=== PATIENT | female | born 1955 ===

== ENCOUNTER 2016-11-08 11:17 | Inpatient (IN) | payer MEDICARE ==
[2016-11-08 11:18] VITALS: BMI 23.3
[2016-11-08] MEDS ORDERED: Sodium Chloride 0.9% 1,000 ML IV ONE (12:55)
--- NOTE | 2016-11-08 12:59 | C.PDOC ---
History Of Present Illness Patient with PMHx of uterine Ca, reports 2-3 week history of weakness and bilateral leg pain. Patient also reports bright red blood per rectum over the past 2-3 days. Patient reports that she is currently on chemotherapy, last treatment was 3 weeks ago. Denies abdominal pain, SOB, fever, chest pain, back pain, numbness, weakness. Time Seen by Provider: 11/08/16 11:57 Chief Complaint (Nursing): Lower Extremity Problem/Injury Severity: Moderate Pain Scale Rating Of: 8 Recent travel outside of the [place]: No Past Medical History Reviewed: Historical Data, Nursing Documentation, Vital Signs Vital Signs: Last Vital Signs Temp 99.3 F 11/08/16 17:17 Pulse 106 H 11/08/16 17:17 Resp 20 11/08/16 17:17 BP 137/85 11/08/16 17:17 Pulse Ox 97 11/08/16 17:17 - Medical History PMH: Anxiety, Asthma, Depression, HTN, Malignancy (uterine Ca) Denies: Chronic Kidney Disease Surgical History: Tonsillectomy - [facility] Procedures CERVICAL BIOPSY NEC (07/23/14) D & C NEC (07/23/14) HYSTEROSCOPY (07/23/14) UTERINE LES DESTRUCT NEC (07/23/14) Family History: States: No Known Family Hx - Social History Hx Tobacco Use: No Hx Alcohol Use: No Hx Substance Use: No - Immunization History Hx Tetanus Toxoid Vaccination: Yes Hx Influenza Vaccination: No Hx Pneumococcal Vaccination: No Review Of Systems Except As Marked, All Systems Reviewed And Found Negative. Physical Exam - Physical Exam Appears: Non-toxic, No Acute Distress Skin: Normal Color, Warm, Pale Head: Atraumatic, Normacephalic Eye(s): bilateral: Normal Inspection, PERRL, EOMI Oral Mucosa: Moist Neck: Normal ROM Chest: Symmetrical, No Tenderness Cardiovascular: Rhythm Regular, No Friction Rub, No Murmur Respiratory: Normal Breath Sounds, No Rales, No Rhonchi, No Wheezing Gastrointestinal/Abdominal: Soft, No Tenderness Rectal: Heme Positive, No Hemorrhoids Extremity: Normal ROM, No Swelling Neurological/Psych: Oriented x3, Normal Speech, Normal Cranial Nerves, Normal Motor Gait: Steady ED Course And Treatment - Laboratory Results Result Diagrams: 11/08/16 13:40 11/08/16 13:40 O2 Sat by Pulse Oximetry: 99 (on RA) Pulse Ox Interpretation: Normal Medical Decision Making Medical Decision Making: IVF NS given. Patient was found to have hemoglobin of 7.5 and patient is having weakness with walking. Transfusion consent was performed. Disposition - Disposition Disposition: HOSPITALIZED Disposition Time: 16:00 Condition: FAIR - POA Present On Arrival: None - Clinical Impression Clinical Impression: Weakness, Anemia, GI bleeding, Hyponatremia
[2016-11-08] MEDS ORDERED: Sodium Chloride 0.9% 1,000 ML ONE (13:23)
[2016-11-08] MEDS ORDERED: Morphine 4 MG/ML VIAL ONE (13:23)
--- NOTE | 2016-11-08 13:55 | RAD ---
PROCEDURE: CHEST RADIOGRAPH, 1 VIEW HISTORY: weakness COMPARISON: 07/22/2015. FINDINGS: LUNGS: The lungs are well inflated and clear. The right MediPort terminates in the SVC. PLEURA: No pneumothorax or pleural fluid seen. CARDIOVASCULAR: Normal. OSSEOUS STRUCTURES: No significant abnormalities. VISUALIZED UPPER ABDOMEN: Normal. OTHER FINDINGS: None. IMPRESSION: No acute findings.
[2016-11-08 14:01] LABS: ALBUMIN 2.8 g/dL (3.5-5.0)
[2016-11-08 14:04] LABS: GFR AFRICAN-AMERICAN > 60; GFR NON-AFRICAN AMERICAN > 60
[2016-11-08 14:05] LABS: ALB/GLOB RATIO 0.9 (1.0-2.1); ALT/SGPT 48 U/L (9-52); AST/SGOT 58 U/L (14-36); BLOOD UREA NITROGEN 16 mg/dL (7-17); CALCIUM 7.8 mg/dl (8.6-10.4); LIPASE 17 U/L (23-300)
[2016-11-08 14:06] LABS: BASO # 0.2 K/uL (0.0-0.2); BASO % 2.3 % (0.0-2.0); EOS % 0.1 % (0.0-4.0); LYMPH # 0.9 K/uL (1.0-4.3); MEAN CORPUSCULAR HEMOGLOBIN 26.9 pg (27.0-31.0); MEAN CORPUSCULAR HGB CONC 31.3 g/dL (33.0-37.0); MEAN PLATELET VOLUME 9.3 fL (7.2-11.7); MONO # 2.7 K/uL (0.0-0.8); MONO % 24.6 % (0.0-10.0); NEUT # 7.1 K/uL (1.8-7.0); NRBC % 0.3 % (0.0-2.0); PLATELET COUNT 245 K/uL (130-400); RBC 2.81 Mil/uL (3.80-5.20); RED CELL DISTRIBUTION WIDTH 20.3 % (11.5-14.5); WHITE BLOOD COUNT 10.9 K/uL (4.8-10.8)
[2016-11-08 14:08] LABS: HEMOGLOBIN 7.5 g/dL (11.0-16.0); MEAN CELL VOLUME 85.9 fL (81.0-99.0)
[2016-11-08 14:44] LABS: SQUAMOUS EPITHIAL 1 /hpf (0-5); URINE BACTERIA RARE (<OCC); URINE BILIRUBIN NEGATIVE (NEGATIVE); URINE BLOOD NEGATIVE (NEGATIVE); URINE CLARITY Clear (Clear); URINE COLOR Yellow (YELLOW); URINE GLUCOSE (UA) NORMAL (Normal); URINE LEUKOCYTE ESTERASE NEG Leu/uL (Negative); URINE NITRATE NEGATIVE (NEGATIVE); URINE PROTEIN 1+ mg/dL (NEGATIVE); URINE UROBILINOGEN NORMAL mg/dL (0.2-1.0)
[2016-11-08 14:45] LABS: BANDS 9 % (0-2); LYMPHOCYTE 6 % (20-40); MONOCYTE 15 % (0-10); NEUTROPHIL 70 % (50-75); NUCLEATED RED BLOOD CELL 1 % (0-0); TOTAL CELLS COUNTED 100
[2016-11-08 14:46] LABS: ANISOCYTOSIS MODERATE; PLATELET ESTIMATE NORMAL (NORMAL)
[2016-11-08 14:47] LABS: HYPOCHROMIC SLIGHT; POIKILOCYTOSIS SLIGHT
[2016-11-08 14:48] LABS: OVALOCYTES SLIGHT
[2016-11-08] MEDS: Dextrose 5%/0.9% NS 1,000 ML IV SCH (18:55)
[2016-11-08 20:27] LABS: INR 1.4; PROTHROMBIN TIME 16.5 SECONDS (9.7-12.2)
--- NOTE | 2016-11-08 23:52 | CP.PCM.HP ---
History of Present Illness - History of Present Illness History of Present Illness: Patient with PMHx of uterine Ca, reports 2-3 week history of weakness and bilateral leg pain. Patient also reports bright red blood per rectum over the past 2-3 days. Patient reports that she is currently on chemotherapy, last treatment was 3 weeks ago. Denies abdominal pain, SOB, fever, chest pain, back pain, numbness, weakness. Present on Admission - Present on Admission Any Indicators Present on Admission: Yes Review of Systems - Review of Systems Systems not reviewed;Unavailable: Acuity of Condition - Constitutional Constitutional: Fatigue, Lethargy - EENT Eyes: absent: As Per HPI, Blind Spots, Blurred Vision, Change in Vision, Decreased Night Vision, Diplopia, Discharge, Dry Eye, Exophthalmos, Floaters, Irritation, Itchy Eyes, Loss of Peripheral Vision, Pain, Photophobia, Requires Corrective Lenses, Sees Flashes, Spots in Vision, Tunnel Vision, Other Visual Disturbances, Loss of Vision, Other Nose/Mouth/Throat: absent: As Per HPI, Epistaxis, Nasal Congestion, Nasal Discharge, Nasal Obstruction, Nasal Trauma, Nose Pain, Post Nasal Drip, Sinus Pain, Sinus Pressure, Bleeding Gums, Change in Voice, Dental Pain, Dry Mouth, Dysphagia, Halitosis, Hoarsness, Lip Swelling, Mouth Lesions, Mouth Pain, Odynophagia, Sore Throat, Throat Swelling, Tongue Swelling, Facial Pain, Neck Pain, Neck Mass, Other - Respiratory Respiratory: absent: As Per HPI, Cough, Dyspnea, Hemoptysis, Dyspnea on Exertion , Wheezing, Snoring, Stridor, Pain on Inspiration, Chest Congestion, Excessive Mucous Production, Change in Mucous Color, Pain with Coughing, Other - Gastrointestinal Gastrointestinal: Abdominal Pain. absent: As Per HPI, Belching, Bloating, Change in Bowel Habits, Change in Stool Character, Coffee Ground Emesis, Constipation, Cramping, Diarrhea, Dyspepsia, Dysphagia, Early Satiety, Excessive Flatus, Fecal Incontinence, Heartburn, Hematemesis, Hematochezia, Loose Stools, Melena, Nausea, Odynophagia, Temesmus, Vomiting, Other Past Patient History - Past Medical History & Family History Past Medical History?: Yes - Past Social History Smoking Status: Never Smoked - CARDIAC Hx Cardiac Disorders: Yes Hx Hypertension: Yes - PULMONARY Hx Respiratory Disorders: Yes Hx Asthma: Yes - NEUROLOGICAL Hx Neurological Disorder: No - HEENT Hx HEENT Problems: No - RENAL Hx Chronic Kidney Disease: No - ENDOCRINE/METABOLIC Hx Endocrine Disorders: No - HEMATOLOGICAL/ONCOLOGICAL Hx Cancer: Yes Hx Chemotherapy: Yes - INTEGUMENTARY Hx Dermatological Problems: No - MUSCULOSKELETAL/RHEUMATOLOGICAL Hx Musculoskeletal Disorders: No Hx Falls: No - GASTROINTESTINAL Hx Gastrointestinal Disorders: Yes Hx Gastroesophageal Reflux: Yes - GENITOURINARY/GYNECOLOGICAL Hx Genitourinary Disorders: Yes Hx Ovarian Cancer: Yes Hx Uterine Cancer: Yes - PSYCHIATRIC Hx Psychophysiologic Disorder: Yes Hx Anxiety: Yes Hx Substance Use: No - SURGICAL HISTORY Hx Surgeries: Yes Hx Tonsillectomy: Yes - ANESTHESIA Hx Anesthesia: Yes Hx Anesthesia Reactions: No Hx Malignant Hyperthermia: No Has any member of the family had a problem w/ anesthesia?: No Meds Allergies/Adverse Reactions: Allergies Allergy/AdvReac Type Severity Reaction Status Date / Time shellfish derived Allergy Verified 07/01/16 19:05 Physical Exam - Constitutional Appears: Well - Head Exam Head Exam: ATRAUMATIC, NORMAL INSPECTION, NORMOCEPHALIC - Eye Exam Eye Exam: EOMI, Normal appearance, PERRL Pupil Exam: NORMAL ACCOMODATION, PERRL - Neck Exam Neck exam: Positive for: Normal Inspection - Respiratory Exam Respiratory Exam: Clear to Auscultation Bilateral, NORMAL BREATHING PATTERN - GI/Abdominal Exam GI & Abdominal Exam: Normal Bowel Sounds, Soft. absent: Tenderness Results - Vital Signs Recent Vital Signs: Last Vital Signs Temp 98.7 F 11/08/16 22:06 Pulse 92 H 11/08/16 22:06 Resp 20 11/08/16 22:06 BP 119/70 11/08/16 22:06 Pulse Ox 98 11/08/16 17:49 - Labs Result Diagrams: 11/09/16 06:29 11/09/16 06:29 Labs: Laboratory Results - last 24 hr 11/08/16 11/08/16 16:33 20:18 PT 16.5 H INR 1.4 Blood Type O NEGATIVE Antibody Screen Negative Assessment & Plan (1) Anemia Status: Acute (2) GI bleeding Status: Acute (3) Weakness Status: Acute (4) Abdominal pain Status: Acute
[2016-11-09] MEDS: Dextrose 5%/0.9% NS 1,000 ML IV SCH ×3 (04:15→14:34)
[2016-11-09 06:35] LABS: HEMOGLOBIN 8.4 g/dL (11.0-16.0); MEAN CELL VOLUME 86.6 fL (81.0-99.0); MEAN CORPUSCULAR HEMOGLOBIN 28.3 pg (27.0-31.0); MEAN CORPUSCULAR HGB CONC 32.6 g/dL (33.0-37.0); MEAN PLATELET VOLUME 8.4 fL (7.2-11.7); RBC 2.96 Mil/uL (3.80-5.20); WHITE BLOOD COUNT 10.4 K/uL (4.8-10.8)
[2016-11-09 07:40] LABS: ALBUMIN 2.3 g/dL (3.5-5.0)
[2016-11-09 07:43] LABS: GFR AFRICAN-AMERICAN > 60; GFR NON-AFRICAN AMERICAN > 60
[2016-11-09 07:44] LABS: ALT/SGPT 36 U/L (9-52); AST/SGOT 51 U/L (14-36); BLOOD UREA NITROGEN 12 mg/dL (7-17); CALCIUM 7.5 mg/dl (8.6-10.4)
[2016-11-09 07:47] LABS: ALB/GLOB RATIO 0.9 (1.0-2.1)
[2016-11-09 08:40] LABS: INR 1.3; PROTHROMBIN TIME 14.9 SECONDS (9.7-12.2)
--- NOTE | 2016-11-09 08:49 | CP.PCM.CON ---
<Javi Diallo - Last Filed: 11/09/16 08:41> History of Present Illness - History of Present Illness History of Present Illness: PGY5 GI Fellow Consult Note Patient is a 61yo female with PMHx significant for metastatic endometrial adenocarcinoma to liver s/p total hysterectomy/BSO, right hemicolectomy and partial sigmoid resection due to tumor invasion who presented to the ED with leg pain and fatigue. The patient receives her care predominantly at [facility]. She was diagnosed with endometrial adenocarcinoma in July 2014 and underwent surgical resection followed by extensive chemotherapy until April 2016. She was noted to have recurrence of her disease with liver metastases and possible peritoneal metastases (unclear history) recently and was restarted on a new chemotherapy regimen 3 weeks prior to admission. In the days leading up to admission she suddenly developed B/L LE pain (right greater than left), generalized fatigue/malaise and 3-4 episodes of bright red blood mixed with stool. Admits that since chemotherapy she has had 3-4 loose stool per day, denies any episodes of constipation. She was seen previously for similar complaints but did not follow up with outpatient GI and has never undergone EGD/ colonoscopy. Denies any history of hemorrhoids. Currently, she admits to fatigue , decreased appetite but denies any nausea, vomiting, fever, chills, abdominal pain, melena, NSAID use. PMHx: See HPI; also, anxiety, asthma, HTN, PSBO PSHx: total hysterectomy/BSO, right hemicolectomy and partial sigmoid resection , appendectomy, tonsillectomy FHx: Father - stomach cancer, EtOH abuse; Mother - brain aneurysm Social: Denies tobacco, EtOH or illicit drug use Endo: Denies any prior endoscopic evaluation Review of Systems - Constitutional Constitutional: Anorexia. absent: Chills, Fever - EENT Eyes: absent: Change in Vision Nose/Mouth/Throat: absent: Sore Throat - Cardiovascular Cardiovascular: absent: Chest Pain, Dyspnea, Edema - Respiratory Respiratory: absent: Cough, Dyspnea, Excessive Mucous Production - Gastrointestinal Gastrointestinal: Diarrhea, Hematochezia, Loose Stools. absent: Abdominal Pain , Bloating, Constipation, Cramping, Dyspepsia, Dysphagia, Hematemesis, Melena, Nausea, Vomiting - Genitourinary Genitourinary: absent: Dysuria, Urinary Frequency, Urinary Urgency - Musculoskeletal Musculoskeletal: absent: Back Pain, Neck Pain - Integumentary Integumentary: absent: New Lesions, Rash - Neurological Neurological: absent: Dizziness, Numbness, Focal Weakness - Psychiatric Psychiatric: Anxiety. absent: Depression - Endocrine Endocrine: absent: Polydipsia, Polyphagia, Polyuria - Hematologic/Lymphatic Hematologic: absent: Easy Bleeding, Easy Bruising, Lymphadenopathy Past Patient History - Past Medical History & Family History Past Medical History?: Yes - Past Social History Smoking Status: Never Smoked - CARDIAC Hx Cardiac Disorders: Yes Hx Hypertension: Yes - PULMONARY Hx Respiratory Disorders: Yes Hx Asthma: Yes - NEUROLOGICAL Hx Neurological Disorder: No - HEENT Hx HEENT Problems: No - RENAL Hx Chronic Kidney Disease: No - ENDOCRINE/METABOLIC Hx Endocrine Disorders: No - HEMATOLOGICAL/ONCOLOGICAL Hx Cancer: Yes Hx Chemotherapy: Yes - INTEGUMENTARY Hx Dermatological Problems: No - MUSCULOSKELETAL/RHEUMATOLOGICAL Hx Musculoskeletal Disorders: No Hx Falls: No - GASTROINTESTINAL Hx Gastrointestinal Disorders: Yes Hx Gastroesophageal Reflux: Yes - GENITOURINARY/GYNECOLOGICAL Hx Genitourinary Disorders: Yes Hx Ovarian Cancer: Yes Hx Uterine Cancer: Yes - PSYCHIATRIC Hx Psychophysiologic Disorder: Yes Hx Anxiety: Yes Hx Substance Use: No - SURGICAL HISTORY Hx Surgeries: Yes Hx Tonsillectomy: Yes - ANESTHESIA Hx Anesthesia: Yes Hx Anesthesia Reactions: No Hx Malignant Hyperthermia: No Has any member of the family had a problem w/ anesthesia?: No Meds Allergies/Adverse Reactions: Allergies Allergy/AdvReac Type Severity Reaction Status Date / Time shellfish derived Allergy Verified 07/01/16 19:05 - Medications Medications: Current Medications Acetaminophen (Tylenol 325mg Tab) 650 mg PO Q6 PRN PRN Reason: Pain, moderate (4-7) Last Admin: 11/08/16 23:31 Dose: 650 mg Clonidine HCl (Catapres) 0.1 mg PO Q8 [facility] Last Admin: 11/09/16 06:02 Dose: 0.1 mg Ferric Sodium Gluconate Complex (Ferrlecit) 125 mg IVPB DAILY [facility] Stop: 11/17/16 10:01 Dextrose/Sodium Chloride (Dextrose 5%/0.9% Ns 1000 Ml) 1,000 mls @ 100 mls/hr IV .Q10H [facility] Last Admin: 11/09/16 04:15 Dose: Not Given Pantoprazole Sodium (Protonix Inj) 40 mg IVP Q12H [facility] Last Admin: 11/09/16 06:10 Dose: Not Given Physical Exam - Constitutional Appears: Non-toxic, No Acute Distress - Eye Exam Eye Exam: EOMI, PERRL - ENT Exam ENT Exam: Mucous Membranes Dry - Respiratory Exam Respiratory Exam: Clear to Auscultation Bilateral. absent: Rales, Rhonchi, Wheezes - Cardiovascular Exam Cardiovascular Exam: RRR, +S1, +S2 - GI/Abdominal Exam GI & Abdominal Exam: Normal Bowel Sounds, Soft. absent: Distended, Firm, Guarding, Rigid, Tenderness Additional comments: midline surgical scar noted - Rectal Exam Additional comments: patient refused - Extremities Exam Extremities exam: Positive for: normal inspection. Negative for: pedal edema - Neurological Exam Neurological exam: Alert, Oriented x3 - Psychiatric Exam Psychiatric exam: Normal Affect, Normal Mood - Skin Skin Exam: Dry, Warm Results - Vital Signs Recent Vital Signs: Last Vital Signs Temp 98.5 F 11/09/16 06:00 Pulse 88 11/09/16 06:00 Resp 20 11/09/16 06:00 BP 130/82 11/09/16 06:00 Pulse Ox 99 11/09/16 06:00 - Labs Result Diagrams: 11/09/16 06:29 11/09/16 06:29 Labs: Laboratory Results - last 24 hr 11/08/16 11/08/16 11/09/16 16:33 20:18 06:29 WBC 10.4 RBC 2.96 L Hgb 8.4 L Hct 25.6 L MCV 86.6 MCH 28.3 MCHC 32.6 L RDW 18.0 H Plt Count 182 MPV 8.4 PT 16.5 H INR 1.4 Sodium Potassium Chloride Carbon Dioxide Anion Gap BUN Creatinine Est GFR ( Amer) Est GFR (Non-Af Amer) Random Glucose Calcium Total Bilirubin AST ALT Alkaline Phosphatase Total Protein Albumin Globulin Albumin/Globulin Ratio Blood Type O NEGATIVE Antibody Screen Negative 11/09/16 06:29 WBC RBC Hgb Hct MCV MCH MCHC RDW Plt Count MPV PT INR Sodium 134 Potassium 3.7 Chloride 103 Carbon Dioxide 25 Anion Gap 9 L BUN 12 Creatinine 0.6 L Est GFR ( Amer) > 60 Est GFR (Non-Af Amer) > 60 Random Glucose 99 Calcium 7.5 L Total Bilirubin 1.0 AST 51 H ALT 36 Alkaline Phosphatase 620 H Total Protein 4.9 L Albumin 2.3 L Globulin 2.7 Albumin/Globulin Ratio 0.9 L Blood Type Antibody Screen Assessment & Plan - Assessment and Plan (Free Text) Assessment: Patient is a 61yo female with PMHx significant for metastatic endometrial adenocarcinoma to liver s/p total hysterectomy/BSO, right hemicolectomy and partial sigmoid resection due to tumor invasion who presented to the ED with leg pain and fatigue. -Anemia -Hemtochezia -Metastatic endometrial adenocarcinoma on chemotherapy -B/L LE pain -Diarrhea -HTN Plan: -S/P 1 unit PRBC, symptoms improved; HGB uptrending -Patient refusing rectal examination -No further episodes of overt bleeding noted by patients/staff -Anemia likely a result recent chemotherapy complicated by episodes of hematochezia -Protonix 40mg PO QAMAC -If diarrhea persists, consider Lomotil -No need for endoscopic evaluation at this time; patient currently does not wish to undergo these procedures if they were to be offered -Consider doppler imaging of LE given h/o active malignancy -OK to advance diet as tolerated - Date & Time Date: 11/09/16 Time: 07:50 <Garrett Cadena - Last Filed: 11/09/16 09:21> Meds - Medications Medications: Current Medications Acetaminophen (Tylenol 325mg Tab) 650 mg PO Q6 PRN PRN Reason: Pain, moderate (4-7) Last Admin: 11/08/16 23:31 Dose: 650 mg Clonidine HCl (Catapres) 0.1 mg PO Q8 [facility] Last Admin: 11/09/16 06:02 Dose: 0.1 mg Ferric Sodium Gluconate Complex (Ferrlecit) 125 mg IVPB DAILY [facility] Stop: 11/17/16 10:01 Dextrose/Sodium Chloride (Dextrose 5%/0.9% Ns 1000 Ml) 1,000 mls @ 100 mls/hr IV .Q10H [facility] Last Admin: 11/09/16 04:15 Dose: Not Given Pantoprazole Sodium (Protonix Ec Tab) 40 mg PO DAILY [facility] Results - Vital Signs Recent Vital Signs: Last Vital Signs Temp 98.5 F 11/09/16 06:00 Pulse 88 11/09/16 06:00 Resp 20 11/09/16 06:00 BP 130/82 11/09/16 06:00 Pulse Ox 99 11/09/16 06:00 - Labs Result Diagrams: 11/09/16 06:29 11/09/16 06:29 Labs: Laboratory Results - last 24 hr 11/08/16 11/08/16 11/09/16 16:33 20:18 06:29 WBC 10.4 RBC 2.96 L Hgb 8.4 L Hct 25.6 L MCV 86.6 MCH 28.3 MCHC 32.6 L RDW 18.0 H Plt Count 182 MPV 8.4 PT 16.5 H INR 1.4 Sodium Potassium Chloride Carbon Dioxide Anion Gap BUN Creatinine Est GFR ( Amer) Est GFR (Non-Af Amer) Random Glucose Calcium Total Bilirubin AST ALT Alkaline Phosphatase Total Protein Albumin Globulin Albumin/Globulin Ratio Blood Type O NEGATIVE Antibody Screen Negative 11/09/16 11/09/16 06:29 06:29 WBC RBC Hgb Hct MCV MCH MCHC RDW Plt Count MPV PT 14.9 H INR 1.3 Sodium 134 Potassium 3.7 Chloride 103 Carbon Dioxide 25 Anion Gap 9 L BUN 12 Creatinine 0.6 L Est GFR ( Amer) > 60 Est GFR (Non-Af Amer) > 60 Random Glucose 99 Calcium 7.5 L Total Bilirubin 1.0 AST 51 H ALT 36 Alkaline Phosphatase 620 H Total Protein 4.9 L Albumin 2.3 L Globulin 2.7 Albumin/Globulin Ratio 0.9 L Blood Type Antibody Screen Attending/Attestation - Attestation I have personally seen and examined this patient.: Yes I have fully participated in the care of the patient.: Yes I have reviewed all pertinent clinical information: Yes Notes (Text): 11/09/16 09:17 61 year old female with h/o metastatic endometrial cancer, h/o ERNESTINE/BSO, R hemicolectomy, sigmoid resection, followed at [facility], s/p new round of chemotherapy admitted with mild BRBPR. 1. BRBPR 2. Diarrhea 3. Anemia Plan: -patient had a self limited episode of BRBPR, she has responded well to transfusion -she refuses colonoscopy and this is probably not necessary emergently anyway as the bleeding resolved -her anemia and diarrhea symptoms are likely related to recent chemotherapy -if she has diarrhea in the hospital, it should be collected and sent for C. diff/Culture -recommend follow up with her oncology team at [facility] -diet as tolerated -will sign off -can use lomotil for diarrhea as needed -ok for discharge from GI standpoint unless significant further bleeding recurs -she has appointment at [facility] on tuesday
[2016-11-09] MEDS: Ferric Sodium Gluconat Complex 62.5 mg/5 ml Vial IVPB SCH (10:49)
[2016-11-09] MEDS: Pantoprazole 40 mg EC Tab PO SCH (10:49)
--- NOTE | 2016-11-09 21:51 | CP.PCM.PN ---
Subjective - Date & Time of Evaluation Date of Evaluation: 11/09/16 Time of Evaluation: 20:00 - Subjective Subjective: Pt seen & examined, is feeling much better, s/p blood transfusion. Objective - Vital Signs/Intake and Output Vital Signs (last 24 hours): Temp Pulse Resp BP Pulse Ox 97.3 F L 88 20 134/72 99 11/09/16 15:08 11/09/16 16:00 11/09/16 15:08 11/09/16 15:08 11/09/16 15:08 Intake and Output: 11/09/16 11/10/16 18:59 06:59 Intake Total 1950 Balance 1950 - Medications Medications: Current Medications Acetaminophen (Tylenol 325mg Tab) 650 mg PO Q6 PRN PRN Reason: Pain, moderate (4-7) Last Admin: 11/09/16 21:37 Dose: 650 mg Clonidine HCl (Catapres) 0.1 mg PO Q8 [facility] Last Admin: 11/09/16 21:38 Dose: 0.1 mg Ferric Sodium Gluconate Complex (Ferrlecit) 125 mg IVPB DAILY [facility] Stop: 11/17/16 10:01 Last Admin: 11/09/16 10:49 Dose: 125 mg Dextrose/Sodium Chloride (Dextrose 5%/0.9% Ns 1000 Ml) 1,000 mls @ 100 mls/hr IV .Q10H [facility] Last Admin: 11/09/16 14:34 Dose: Not Given Metoclopramide HCl (Reglan) 10 mg IVP Q6 PRN PRN Reason: Nausea/Vomiting Last Admin: 11/09/16 20:42 Dose: 10 mg Pantoprazole Sodium (Protonix Ec Tab) 40 mg PO DAILY [facility] Last Admin: 11/09/16 10:49 Dose: 40 mg Paroxetine HCl (Paxil) 10 mg PO DAILY [facility] Last Admin: 11/09/16 10:49 Dose: 10 mg - Labs Labs: 11/09/16 06:29 11/09/16 06:29 PT 14.9 SECONDS (9.7-12.2) H 11/09/16 06:29 INR 1.3 11/09/16 06:29 - Constitutional Appears: No Acute Distress - Head Exam Head Exam: ATRAUMATIC, NORMAL INSPECTION, NORMOCEPHALIC - Eye Exam Eye Exam: EOMI, Normal appearance, PERRL Pupil Exam: NORMAL ACCOMODATION, PERRL - ENT Exam ENT Exam: Mucous Membranes Moist, Normal Exam - Respiratory Exam Respiratory Exam: Clear to Ausculation Bilateral, NORMAL BREATHING PATTERN - Cardiovascular Exam Cardiovascular Exam: REGULAR RHYTHM, +S1, +S2. absent: Murmur - GI/Abdominal Exam GI & Abdominal Exam: Soft, Normal Bowel Sounds. absent: Tenderness - Rectal Exam Rectal Exam: Deferred Assessment and Plan (1) Anemia Status: Acute (2) GI bleeding Assessment & Plan: 61 year old female with h/o metastatic endometrial cancer, h/o ERNESTINE/BSO, R hemicolectomy, sigmoid resection, followed at [facility], s/p new round of chemotherapy admitted with mild BRBPR. 1. BRBPR 2. Diarrhea 3. Anemia Plan: -patient had a self limited episode of BRBPR, she has responded well to transfusion -she refuses colonoscopy and this is probably not necessary emergently anyway as the bleeding resolved -her anemia and diarrhea symptoms are likely related to recent chemotherapy -if she has diarrhea in the hospital, it should be collected and sent for C. diff/Culture -recommend follow up with her oncology team at [facility] -diet as tolerated -will sign off -can use lomotil for diarrhea as needed -ok for discharge from GI standpoint unless significant further bleeding recurs -she has appointment at [facility] on tuesday Status: Acute (3) Gastrointestinal hemorrhage Status: Acute (4) Uterine cancer Status: Acute
[2016-11-10] MEDS: Dextrose 5%/0.9% NS 1,000 ML IV SCH (00:15)
[2016-11-10] MEDS: Ferric Sodium Gluconat Complex 62.5 mg/5 ml Vial IVPB SCH (10:04)
[2016-11-10] MEDS: Pantoprazole 40 mg EC Tab PO SCH (10:05)
--- NOTE | 2016-11-10 10:25 | US ---
HISTORY: high lft's COMPARISON: CT abdomen/ pelvis 07/22/2015 TECHNIQUE: Sonographic evaluation of the abdomen. FINDINGS: LIVER: Measures 17.1 cm. Heterogeneous echogenicity of the liver parenchyma. Multiple hypoechoic masses are identified, largest 6.6 x 5.0 x 4.4 cm. Suspicious for metastatic disease. No biliary ductal dilatation. GALLBLADDER: Gallbladder partially contracted. Mural thickening up to 9 mm. Nonspecific. Cholelithiasis noted. Pericholecystic fluid is seen in the setting of mild generalized ascites. Again, nonspecific. Negative sonographic Mcgee sign. COMMON BILE DUCT: Measures 4 mm. No stones. No dilatation. PANCREAS: In the region of the pancreatic head, there is a complex mass, predominantly cystic, measuring 2.9 x 1.3 x 2.0 cm. This may represent the ileocolic anastomosis status post partial right hemicolectomy. Less likely is pancreatic head neoplasm. Consider correlation with CT examination with IV contrast administration. RIGHT KIDNEY: Measures 11.0cm. Normal echogenicity. No calculus, mass, or hydronephrosis. LEFT KIDNEY: Measures 11.1cm. Normal echogenicity. No calculus, mass, or hydronephrosis. SPLEEN: Normal in size and contour. No mass. AORTA: No aneurysmal dilatation. IVC: Unremarkable. OTHER FINDINGS: Ascites. Bilateral pleural effusion. IMPRESSION: Multiple hepatic masses suspicious for metastatic disease. No evidence of biliary obstruction. Cholelithiasis. No clear evidence of cholecystitis. Complex cystic mass versus ileocolic anastomosis in region of pancreatic head. Consider correlation with intravenous contrast enhanced computed tomography. Ascites. Bilateral pleural effusion.
[2016-11-10 10:53] LABS: BASO % 0.4 % (0.0-2.0); EOS % 0.1 % (0.0-4.0); HEMOGLOBIN 8.1 g/dL (11.0-16.0); LYMPH # 0.7 K/uL (1.0-4.3); LYMPH % 5.7 % (20.0-40.0); MEAN CELL VOLUME 87.4 fL (81.0-99.0); MEAN CORPUSCULAR HEMOGLOBIN 27.8 pg (27.0-31.0); MEAN CORPUSCULAR HGB CONC 31.8 g/dL (33.0-37.0); MEAN PLATELET VOLUME 8.4 fL (7.2-11.7); MONO # 1.8 K/uL (0.0-0.8); MONO % 15.7 % (0.0-10.0); NEUT # 9.1 K/uL (1.8-7.0); NEUT % 78.1 % (50.0-75.0); NRBC % 0.2 % (0.0-2.0); RBC 2.92 Mil/uL (3.80-5.20); RED CELL DISTRIBUTION WIDTH 18.8 % (11.5-14.5); WHITE BLOOD COUNT 11.6 K/uL (4.8-10.8)
[2016-11-10 11:01] LABS: PLATELET COUNT 120 K/uL (130-400)
[2016-11-10 11:39] LABS: ANISOCYTOSIS SLIGHT; BANDS 9 % (0-2); HYPOCHROMIC SLIGHT; LYMPHOCYTE 5 % (20-40); MONOCYTE 10 % (0-10); NEUTROPHIL 76 % (50-75); PLATELET ESTIMATE SLIGHTLY DECREASED (NORMAL); TOTAL CELLS COUNTED 100
[2016-11-10 11:40] LABS: POIKILOCYTOSIS SLIGHT
[2016-11-10 11:41] LABS: POLYCHROMIC SLIGHT
--- NOTE | 2016-11-10 17:20 | CP.PCM.PN ---
Subjective - Date & Time of Evaluation Date of Evaluation: 11/10/16 Time of Evaluation: 10:45 - Subjective Subjective: HOME ECONOMIST NOTES Pt seen and examined today , states feels ok, denies further rectal bleeding, denies any sob, dizziness, palpitations, abdominal pain B/L LE swollen and c/o left calf pain , duplex scan LE ordered - and positive DVT B/L -( saphenous vein, popliteal vein ) Objective - Vital Signs/Intake and Output Vital Signs (last 24 hours): Temp Pulse Resp BP Pulse Ox 98.0 F 55 L 20 148/82 98 11/10/16 15:27 11/10/16 15:27 11/10/16 15:27 11/10/16 15:27 11/10/16 15:27 Intake and Output: 11/10/16 11/10/16 06:59 18:59 Intake Total 330 Balance 330 - Medications Medications: Current Medications Acetaminophen (Tylenol 325mg Tab) 650 mg PO Q6 PRN PRN Reason: Pain, moderate (4-7) Last Admin: 11/10/16 14:51 Dose: 650 mg Clonidine HCl (Catapres) 0.1 mg PO Q8 [facility] Last Admin: 11/10/16 14:02 Dose: 0.1 mg Enoxaparin Sodium (Lovenox) 49.895 mg SC Q12H [facility] Ferric Sodium Gluconate Complex (Ferrlecit) 125 mg IVPB DAILY [facility] Stop: 11/17/16 10:01 Last Admin: 11/10/16 10:04 Dose: 125 mg Metoclopramide HCl (Reglan) 10 mg IVP Q6 PRN PRN Reason: Nausea/Vomiting Last Admin: 11/10/16 05:23 Dose: 10 mg Pantoprazole Sodium (Protonix Ec Tab) 40 mg PO DAILY [facility] Last Admin: 11/10/16 10:05 Dose: 40 mg Paroxetine HCl (Paxil) 10 mg PO DAILY [facility] Last Admin: 11/10/16 10:06 Dose: 10 mg - Labs Labs: 11/10/16 10:43 11/09/16 06:29 PT 14.9 SECONDS (9.7-12.2) H 11/09/16 06:29 INR 1.3 11/09/16 06:29 - Constitutional Appears: No Acute Distress - ENT Exam ENT Exam: Mucous Membranes Moist - Respiratory Exam Respiratory Exam: Clear to Ausculation Bilateral, NORMAL BREATHING PATTERN - Cardiovascular Exam Cardiovascular Exam: REGULAR RHYTHM, +S1, +S2 - Extremities Exam Extremities Exam: Calf Tenderness, Full ROM, Pedal Edema, Tenderness Assessment and Plan - Assessment and Plan (Free Text) Assessment: A/P 61 yr old female admitted for rectal bleed, anemia s/p PRBC transfusion- hgb- improved and stable - 8.1> 8.4>7.5 OB + seen by GI pt refused GI workup (colonoscopy and EGD) new dx with DVT B/L le D/w Dr. Mohsen edmondson to start lovenox ( risk vs benefit ) Dr. Owusu consulted for possible IVC filter Lovenox wt based started will monitor cbc daily/ and further bleeding the above plan discussed with Dr. Quan, and agrees with plan
[2016-11-10] MEDS: Enoxaparin 60 mg Syringe SC SCH (17:58)
--- NOTE | 2016-11-10 18:43 | CP.PCM.CON ---
History of Present Illness - History of Present Illness History of Present Illness: General Surgery consult for Dr. Vargas Patient is a 61 year old female with a PMH of metastatic uterine cancer, HTN, GERD, and asthma and a PSH including hysterectomy with BSO and right hemicolectomy with partial sigmoidectomy who is currently undergoing chemotherapy treatment. Patient presented to the ER for BL lower extremity pain. Patient state that the pain began 3-4 days ago and is in her calves when she walks. Patient also reports history of diarrhea and nausea due to the chemotherapy treatment and had one episode of hematochezia two days ago. Patient states that she has not had any other bleeding or melena since. Patient denies any SOB, chest pain, vomiting, abdominal pain, or any other symptoms. Patient was severely anemic on presentation and remains anemic despite a transfusion of 1 unit of PRBC. GI is consulted but patient is currently refusing endoscopic evaluation. PMH: HTN, ansiety, asthma, GERD, metastatic uterine cancer PSH: hysterectomy wtih BSO, right hemicolectomy and partial sigmoid resection, tonsillectomy All: shellfish Social: denies tobacco, drinks socially, denies drugs Review of Systems - Review of Systems All systems: reviewed and no additional remarkable complaints except (as per HPI ) - Constitutional Constitutional: Weight Loss. absent: Chills, Fever Additional comments: decreased PO intake - Cardiovascular Cardiovascular: Palpitations. absent: Chest Pain, Chest Pain at Rest, Dyspnea - Respiratory Respiratory: absent: Cough, Dyspnea, Dyspnea on Exertion, Chest Congestion - Gastrointestinal Gastrointestinal: Hematochezia. absent: Abdominal Pain, Diarrhea, Melena, Nausea, Vomiting - Genitourinary Genitourinary: absent: Change in Urinary Stream, Dysuria, Hematuria - Reproductive: Female Reproductive:Female: S/P Hysterectomy - Menstruation Menstruation: S/P Hysterectomy - Musculoskeletal Musculoskeletal: absent: Numbness, Tingling Additional comments: BL LE pain - Neurological Neurological: absent: Abnormal Gait, Numbness, Tingling - Psychiatric Psychiatric: Anxiety - Endocrine Endocrine: Palpitations. absent: Fatigue Past Patient History - Past Medical History & Family History Past Medical History?: Yes - Past Social History Smoking Status: Never Smoked Alcohol: Social Drugs: Denies - CARDIAC Hx Cardiac Disorders: Yes Hx Hypertension: Yes - PULMONARY Hx Respiratory Disorders: Yes Hx Asthma: Yes - NEUROLOGICAL Hx Neurological Disorder: No - HEENT Hx HEENT Problems: No - RENAL Hx Chronic Kidney Disease: No - ENDOCRINE/METABOLIC Hx Endocrine Disorders: No - HEMATOLOGICAL/ONCOLOGICAL Hx Cancer: Yes Hx Chemotherapy: Yes - INTEGUMENTARY Hx Dermatological Problems: No - MUSCULOSKELETAL/RHEUMATOLOGICAL Hx Musculoskeletal Disorders: No Hx Falls: No - GASTROINTESTINAL Hx Gastrointestinal Disorders: Yes Hx Gastroesophageal Reflux: Yes - GENITOURINARY/GYNECOLOGICAL Hx Genitourinary Disorders: Yes Hx Ovarian Cancer: Yes Hx Uterine Cancer: Yes - PSYCHIATRIC Hx Psychophysiologic Disorder: Yes Hx Anxiety: Yes Hx Substance Use: No - SURGICAL HISTORY Hx Surgeries: Yes Hx Tonsillectomy: Yes - ANESTHESIA Hx Anesthesia: Yes Hx Anesthesia Reactions: No Hx Malignant Hyperthermia: No Has any member of the family had a problem w/ anesthesia?: No Meds Allergies/Adverse Reactions: Allergies Allergy/AdvReac Type Severity Reaction Status Date / Time shellfish derived Allergy Verified 07/01/16 19:05 - Medications Medications: Current Medications Acetaminophen (Tylenol 325mg Tab) 650 mg PO Q6 PRN PRN Reason: Pain, moderate (4-7) Last Admin: 11/10/16 14:51 Dose: 650 mg Clonidine HCl (Catapres) 0.1 mg PO Q8 [facility] Last Admin: 11/10/16 14:02 Dose: 0.1 mg Enoxaparin Sodium (Lovenox) 49.895 mg SC Q12H [facility] Last Admin: 11/10/16 17:58 Dose: 49.895 mg Ferric Sodium Gluconate Complex (Ferrlecit) 125 mg IVPB DAILY [facility] Stop: 11/17/16 10:01 Last Admin: 11/10/16 10:04 Dose: 125 mg Metoclopramide HCl (Reglan) 10 mg IVP Q6 PRN PRN Reason: Nausea/Vomiting Last Admin: 11/10/16 05:23 Dose: 10 mg Pantoprazole Sodium (Protonix Ec Tab) 40 mg PO DAILY [facility] Last Admin: 11/10/16 10:05 Dose: 40 mg Paroxetine HCl (Paxil) 10 mg PO DAILY [facility] Last Admin: 11/10/16 10:06 Dose: 10 mg Physical Exam - Constitutional Appears: Well, Non-toxic, No Acute Distress - Head Exam Head Exam: ATRAUMATIC, NORMOCEPHALIC - Eye Exam Eye Exam: Normal appearance. absent: Conjunctival injection, Scleral icterus - ENT Exam ENT Exam: Mucous Membranes Moist, Normal Oropharynx - Respiratory Exam Respiratory Exam: NORMAL BREATHING PATTERN. absent: Accessory Muscle Use, Respiratory Distress - Cardiovascular Exam Cardiovascular Exam: Irregular Rhythm. absent: Bradycardia, Tachycardia - GI/Abdominal Exam GI & Abdominal Exam: Soft. absent: Distended, Tenderness - Extremities Exam Extremities exam: Negative for: calf tenderness, pedal edema, pedal pulses present Additional comments: negative holmans BL - Neurological Exam Neurological exam: Alert, Oriented x3 - Psychiatric Exam Psychiatric exam: Normal Affect, Normal Mood - Skin Skin Exam: Dry, Intact, Normal Color, Warm Results - Vital Signs Recent Vital Signs: Last Vital Signs Temp 98.0 F 11/10/16 15:27 Pulse 55 L 11/10/16 15:27 Resp 20 11/10/16 15:27 BP 148/82 11/10/16 15:27 Pulse Ox 98 11/10/16 15:27 - Labs Result Diagrams: 11/10/16 10:43 11/09/16 06:29 Labs: Laboratory Results - last 24 hr 11/10/16 10:43 WBC 11.6 H RBC 2.92 L Hgb 8.1 L Hct 25.5 L MCV 87.4 MCH 27.8 MCHC 31.8 L RDW 18.8 H Plt Count 120 L D MPV 8.4 Neut % (Auto) 78.1 H Lymph % (Auto) 5.7 L [place] % (Auto) 15.7 H Eos % (Auto) 0.1 Baso % (Auto) 0.4 Neut # 9.1 H Lymph # 0.7 L [place] # 1.8 H Eos # 0.0 Baso # 0.0 Neutrophils % (Manual) 76 H Band Neutrophils % 9 H Lymphocytes % (Manual) 5 L Monocytes % (Manual) 10 Platelet Estimate Slightly decreased L Polychromasia Slight Hypochromasia (manual) Slight Poikilocytosis (manual Slight Anisocytosis (manual) Slight Assessment & Plan - Assessment and Plan (Free Text) Assessment: 61F with PMH of uterine cancer with mets to liver and colon currently undergoing chemo with BL LE DVT's, anemia, and hematochezia BL LE duplex US: multiple DVT's BL hgb: 8.1 anti-coagulants contra-indicated with anemia and possibility of GI bleed Plan: -OR tomorrow for IVC placement -NPO after midnight -AM labs -continue lovenox Thank you for this consult Discussed with Dr. Sam Poe, PGY2
--- NOTE | 2016-11-10 22:47 | CP.PCM.PN ---
Subjective - Date & Time of Evaluation Date of Evaluation: 11/10/16 Time of Evaluation: 21:00 - Subjective Subjective: 61F seen and examined today, with PMH of uterine cancer with mets to liver and colon currently undergoing chemo with BL LE DVT's, anemia, and hematochezia BL LE duplex US: multiple DVT's BL hgb: 8.1 anti-coagulants contra-indicated with anemia and possibility of GI bleed Objective - Vital Signs/Intake and Output Vital Signs (last 24 hours): Temp Pulse Resp BP Pulse Ox 98.0 F 55 L 20 148/82 98 11/10/16 15:27 11/10/16 15:27 11/10/16 15:27 11/10/16 15:27 11/10/16 15:27 Intake and Output: 11/10/16 11/11/16 18:59 06:59 Intake Total 330 Balance 330 - Medications Medications: Current Medications Acetaminophen (Tylenol 325mg Tab) 650 mg PO Q6 PRN PRN Reason: Pain, moderate (4-7) Last Admin: 11/10/16 14:51 Dose: 650 mg Clonidine HCl (Catapres) 0.1 mg PO Q8 [facility] Last Admin: 11/10/16 21:26 Dose: 0.1 mg Enoxaparin Sodium (Lovenox) 49.895 mg SC Q12H [facility] Last Admin: 11/10/16 17:58 Dose: 49.895 mg Ferric Sodium Gluconate Complex (Ferrlecit) 125 mg IVPB DAILY [facility] Stop: 11/17/16 10:01 Last Admin: 11/10/16 10:04 Dose: 125 mg Metoclopramide HCl (Reglan) 10 mg IVP Q6 PRN PRN Reason: Nausea/Vomiting Last Admin: 11/10/16 05:23 Dose: 10 mg Pantoprazole Sodium (Protonix Ec Tab) 40 mg PO DAILY [facility] Last Admin: 11/10/16 10:05 Dose: 40 mg Paroxetine HCl (Paxil) 10 mg PO DAILY [facility] Last Admin: 11/10/16 10:06 Dose: 10 mg Zolpidem Tartrate (Ambien) 5 mg PO HS PRN PRN Reason: Insomnia Last Admin: 11/10/16 22:37 Dose: 5 mg - Labs Labs: 11/10/16 10:43 11/09/16 06:29 PT 14.9 SECONDS (9.7-12.2) H 11/09/16 06:29 INR 1.3 11/09/16 06:29 - Constitutional Appears: No Acute Distress, Chronically Ill - Head Exam Head Exam: ATRAUMATIC, NORMAL INSPECTION, NORMOCEPHALIC - Eye Exam Eye Exam: EOMI, Normal appearance, PERRL Pupil Exam: NORMAL ACCOMODATION, PERRL - ENT Exam ENT Exam: Mucous Membranes Moist, Normal Exam - Respiratory Exam Respiratory Exam: Decreased Breath Sounds, Rhonchi - Cardiovascular Exam Cardiovascular Exam: Irregular Rhythm, +S1, +S2 - GI/Abdominal Exam GI & Abdominal Exam: Soft, Normal Bowel Sounds. absent: Tenderness Assessment and Plan (1) Anemia Status: Acute (2) GI bleeding Status: Acute (3) Gastrointestinal hemorrhage Status: Acute (4) Uterine cancer Status: Acute - Assessment and Plan (Free Text) Plan: Plan: -OR tomorrow for IVC placement -NPO after midnight -AM labs -continue lovenox
[2016-11-11] MEDS: Enoxaparin 60 mg Syringe SC SCH ×2 (05:17→16:32)
[2016-11-11 06:33] LABS: INR 1.5; PROTHROMBIN TIME 16.5 SECONDS (9.7-12.2)
[2016-11-11 06:36] LABS: BASO % 0.3 % (0.0-2.0); EOS % 0.1 % (0.0-4.0); HEMOGLOBIN 8.2 g/dL (11.0-16.0); MEAN CELL VOLUME 87.3 fL (81.0-99.0); MEAN CORPUSCULAR HEMOGLOBIN 28.1 pg (27.0-31.0); MEAN CORPUSCULAR HGB CONC 32.1 g/dL (33.0-37.0); MEAN PLATELET VOLUME 9.2 fL (7.2-11.7); MONO # 2.7 K/uL (0.0-0.8); MONO % 19.2 % (0.0-10.0); NEUT # 10.3 K/uL (1.8-7.0); NEUT % 73.4 % (50.0-75.0); NRBC % 0.1 % (0.0-2.0); PLATELET COUNT 141 K/uL (130-400); RBC 2.91 Mil/uL (3.80-5.20); RED CELL DISTRIBUTION WIDTH 20.3 % (11.5-14.5)
[2016-11-11 07:19] LABS: ALBUMIN 2.3 g/dL (3.5-5.0)
[2016-11-11 07:21] LABS: AST/SGOT 69 U/L (14-36); GFR AFRICAN-AMERICAN > 60; GFR NON-AFRICAN AMERICAN > 60
[2016-11-11 07:22] LABS: ALB/GLOB RATIO 0.8 (1.0-2.1); ALT/SGPT 37 U/L (9-52); BLOOD UREA NITROGEN 12 mg/dL (7-17); CALCIUM 7.9 mg/dl (8.6-10.4)
[2016-11-11 08:28] LABS: BANDS 2 % (0-2); LYMPHOCYTE 7 % (20-40); MONOCYTE 19 % (0-10); NEUTROPHIL 72 % (50-75); TOTAL CELLS COUNTED 100
[2016-11-11 08:29] LABS: PLATELET ESTIMATE NORMAL (NORMAL)
[2016-11-11 08:30] LABS: ANISOCYTOSIS MODERATE; HYPOCHROMIC SLIGHT; POLYCHROMIC SLIGHT
[2016-11-11 08:31] LABS: MICROCYTOSIS SLIGHT
[2016-11-11 08:32] LABS: OVALOCYTES SLIGHT
[2016-11-11] MEDS: Pantoprazole 40 mg EC Tab PO SCH ×2 (10:00→21:46)
[2016-11-11] MEDS ORDERED: Iodixanol 320 MG/ML 200 ML BOTTLE IV ONE (10:07)
[2016-11-11] MEDS ORDERED: Lidocaine 1% Inj (20ml) ONE (10:08)
[2016-11-11] MEDS ORDERED: ceFAZolin IV 1 gm in Dextrose 0 GM/0 ML BAG IVPB ONE (10:08)
[2016-11-11] MEDS ORDERED: HEPARIN-NS 5,000 UNITS/500 ML 5,000 UNIT/500 ML BAG IV ONE (10:11)
[2016-11-11] MEDS ORDERED: Lactated Ringer's 1,000 ML IV ONE (10:24)
[2016-11-11] MEDS: Ferric Sodium Gluconat Complex 62.5 mg/5 ml Vial IVPB SCH ×2 (10:25→12:39)
--- NOTE | 2016-11-11 13:30 | VASCLAB ---
PROCEDURE: Lower Extremity Venous Duplex Exam. HISTORY: Leg swelling PRIORS: None. TECHNIQUE: Bilateral common femoral, femoral, popliteal and posterior tibial, peroneal and great saphenous veins were evaluated. Flow was assessed with color Doppler, compressibility, assessment of phasic flow and augmentation response. Report prepared by TRINO Palmer, RVT FINDINGS: RIGHT: 1. Common Femoral Vein: 1.1. Compressibility - Partial: Thrombus - Acute : Flow - Phasic: Augmentation -Normal: Reflux - None. 2. Femoral Vein: 2.1. Compressibility - Fully compressible: Thrombus - None : Flow - Phasic: Augmentation -Normal: Reflux - None. 3. Popliteal Vein: 3.1. Compressibility - Partial: Thrombus - Acute : Flow - Reduced : Augmentation -None: Reflux - None. 4. Posterior Tibial Vein: 4.1. Compressibility - Fully compressible: Thrombus - None: Flow - Phasic: Augmentation -Normal: Reflux - None. 5. Peroneal Vein: 5.1. Compressibility - Fully compressible: Thrombus - None: Flow - Phasic: Augmentation -Normal: Reflux - None. 6. Great Saphenous Vein: 6.1. Compressibility - Incompressible: Thrombus - Acute: Flow - Absent : Augmentation - None: Reflux - None. LEFT: 1. Common Femoral Vein: 1.1. Compressibility - Fully compressible: Thrombus - None: Flow - Phasic: Augmentation -Normal: Reflux - None. 2. Femoral Vein: 2.1. Compressibility - Fully compressible: Thrombus - None: Flow - Phasic: Augmentation -Normal: Reflux - None. 3. Popliteal Vein: 3.1. Compressibility - Fully compressible: Thrombus - None : Flow - Phasic: Augmentation -Normal: Reflux - None. 4. Posterior Tibial Vein: 4.1. Compressibility - Fully compressible: Thrombus - None: Flow - Phasic: Augmentation -Normal: Reflux - None. 5. Peroneal Vein: 5.1. Compressibility - Partial: Thrombus - Acute: Flow - Absent : Augmentation -None: Reflux - None. 6. Great Saphenous Vein: 6.1. Compressibility - Incompressible: Thrombus - Acute: Flow - Absent : Augmentation - None: Reflux - None. OTHER FINDINGS: VICTORIA Swanson notified about the findings. IMPRESSION: Right: Acute thrombosis of the right common femoral, femoral, popliteal and greater saphenous veins with severe reduction of the venous return. Left: Acute thrombosis of the left peroneal and greater saphenous veins with severe reduction of the venous return.
--- NOTE | 2016-11-11 14:48 | CP.PCM.PN ---
Subjective - Date & Time of Evaluation Date of Evaluation: 11/11/16 Time of Evaluation: 11:00 - Subjective Subjective: Pt with Gi bleed and advanced uterus cancer, pt is on medical and supportive managment, no intervention /procedure is recomended, on chemo, pt has DVT on b/ l LE, IVC filter has to be placed Objective - Vital Signs/Intake and Output Vital Signs (last 24 hours): Temp Pulse Resp BP Pulse Ox 98.6 F 91 H 20 144/80 97 11/11/16 12:42 11/11/16 14:14 11/11/16 12:42 11/11/16 14:14 11/11/16 12:42 - Medications Medications: Current Medications Acetaminophen (Tylenol 325mg Tab) 650 mg PO Q6 PRN PRN Reason: Pain, moderate (4-7) Last Admin: 11/10/16 14:51 Dose: 650 mg Clonidine HCl (Catapres) 0.1 mg PO Q8 [facility] Last Admin: 11/11/16 14:15 Dose: 0.1 mg Enoxaparin Sodium (Lovenox) 49.895 mg SC Q12H [facility] Last Admin: 11/11/16 05:17 Dose: 49.895 mg Ferric Sodium Gluconate Complex (Ferrlecit) 125 mg IVPB DAILY [facility] Stop: 11/17/16 10:01 Last Admin: 11/11/16 12:39 Dose: 125 mg Metoclopramide HCl (Reglan) 10 mg IVP Q6 PRN PRN Reason: Nausea/Vomiting Last Admin: 11/10/16 05:23 Dose: 10 mg Pantoprazole Sodium (Protonix Ec Tab) 40 mg PO DAILY [facility] Last Admin: 11/11/16 10:00 Dose: Not Given Paroxetine HCl (Paxil) 10 mg PO DAILY [facility] Last Admin: 11/11/16 10:00 Dose: Not Given Zolpidem Tartrate (Ambien) 5 mg PO HS PRN PRN Reason: Insomnia Last Admin: 11/10/16 22:37 Dose: 5 mg - Labs Labs: 11/11/16 06:14 11/11/16 04:00 PT 16.5 SECONDS (9.7-12.2) H 11/11/16 06:14 INR 1.5 11/11/16 06:14 APTT 32 SECONDS (21-34) 11/11/16 06:14 Assessment and Plan (1) Anemia Status: Acute (2) GI bleeding Status: Acute (3) Gastrointestinal hemorrhage Status: Acute (4) Uterine cancer Status: Acute
[2016-11-12] MEDS: Enoxaparin 60 mg Syringe SC SCH ×2 (05:25→17:19)
[2016-11-12 07:27] LABS: BASO % 0.2 % (0.0-2.0); HEMOGLOBIN 8.3 g/dL (11.0-16.0); LYMPH # 0.5 K/uL (1.0-4.3); LYMPH % 3.6 % (20.0-40.0); MEAN CELL VOLUME 87.9 fL (81.0-99.0); MEAN CORPUSCULAR HEMOGLOBIN 27.7 pg (27.0-31.0); MEAN CORPUSCULAR HGB CONC 31.6 g/dL (33.0-37.0); MONO # 0.7 K/uL (0.0-0.8); MONO % 5.1 % (0.0-10.0); NEUT # 12.7 K/uL (1.8-7.0); NEUT % 91.1 % (50.0-75.0); PLATELET COUNT 149 K/uL (130-400); RED CELL DISTRIBUTION WIDTH 20.5 % (11.5-14.5); WHITE BLOOD COUNT 13.9 K/uL (4.8-10.8)
[2016-11-12 07:54] LABS: GFR AFRICAN-AMERICAN > 60; GFR NON-AFRICAN AMERICAN > 60
[2016-11-12 07:55] LABS: BLOOD UREA NITROGEN 13 mg/dL (7-17); CALCIUM 7.8 mg/dl (8.6-10.4)
[2016-11-12 08:39] LABS: ANISOCYTOSIS SLIGHT; BANDS 2 % (0-2); LYMPHOCYTE 3 % (20-40); MONOCYTE 2 % (0-10); NEUTROPHIL 93 % (50-75); PLATELET ESTIMATE NORMAL (NORMAL); TOTAL CELLS COUNTED 100
[2016-11-12 08:40] LABS: HYPOCHROMIC SLIGHT; MICROCYTOSIS SLIGHT; POLYCHROMIC SLIGHT
[2016-11-12] MEDS: Ferric Sodium Gluconat Complex 62.5 mg/5 ml Vial IVPB SCH (10:10)
[2016-11-12] MEDS: Pantoprazole 40 mg EC Tab PO SCH (10:10)
[2016-11-12] MEDS ORDERED: Iohexol 240 (50 ml) ONE (11:42)
[2016-11-12] MEDS ORDERED: DiphenhydrAMINE 50 mg/ml Inj IVP STA (11:44)
[2016-11-12] MEDS ORDERED: HEPARIN-NS 5,000 UNITS/500 ML 5,000 UNIT/500 ML BAG IV ONE (11:53)
[2016-11-12] MEDS ORDERED: Sodium Chloride 0.9% 1,000 ML IV ONE (12:30)
[2016-11-12] MEDS ORDERED: Midazolam 2 MG/2 ML VIAL ONE (12:38)
[2016-11-12] MEDS ORDERED: ceFAZolin IV 1 gm in Dextrose 1 GM/50 ML BAG IVPB ONE (13:04)
[2016-11-12] MEDS ORDERED: Oxycodone/Acetaminophen 5/325 mg Tab PO PRN (13:27)
[2016-11-12 16:37] VITALS: RESP 20
[2016-11-12] MEDS: DiphenhydrAMINE 50 mg/ml Inj IVP SCH (17:19)
[2016-11-13] MEDS: DiphenhydrAMINE 50 mg/ml Inj IVP SCH (00:20)
[2016-11-13] MEDS: Sodium Chloride 0.9% 1,000 ML IV SCH ×2 (00:21→03:04)
[2016-11-13] MEDS: Enoxaparin 60 mg Syringe SC SCH ×2 (05:29→17:20)
[2016-11-13 06:48] LABS: BASO % 0.1 % (0.0-2.0); HEMOGLOBIN 8.3 g/dL (11.0-16.0); LYMPH # 0.8 K/uL (1.0-4.3); LYMPH % 3.6 % (20.0-40.0); MEAN CELL VOLUME 88.2 fL (81.0-99.0); MEAN CORPUSCULAR HEMOGLOBIN 28.3 pg (27.0-31.0); MEAN CORPUSCULAR HGB CONC 32.1 g/dL (33.0-37.0); MEAN PLATELET VOLUME 9.1 fL (7.2-11.7); MONO # 2.2 K/uL (0.0-0.8); MONO % 9.7 % (0.0-10.0); NEUT # 19.5 K/uL (1.8-7.0); NEUT % 86.6 % (50.0-75.0); PLATELET COUNT 167 K/uL (130-400); RBC 2.93 Mil/uL (3.80-5.20); RED CELL DISTRIBUTION WIDTH 21.4 % (11.5-14.5); WHITE BLOOD COUNT 22.5 K/uL (4.8-10.8)
[2016-11-13 07:02] LABS: ALBUMIN 2.5 g/dL (3.5-5.0)
[2016-11-13 07:05] LABS: ALB/GLOB RATIO 0.9 (1.0-2.1); AST/SGOT 51 U/L (14-36); BLOOD UREA NITROGEN 15 mg/dL (7-17); GFR AFRICAN-AMERICAN > 60; GFR NON-AFRICAN AMERICAN > 60
[2016-11-13 07:06] LABS: ALT/SGPT 33 U/L (9-52); CALCIUM 7.9 mg/dl (8.6-10.4)
--- NOTE | 2016-11-13 07:30 | CP.PCM.PN ---
Subjective - Date & Time of Evaluation Date of Evaluation: 11/12/16 Time of Evaluation: 20:40 - Subjective Subjective: Pt seen and examined, is improving Objective - Vital Signs/Intake and Output Vital Signs (last 24 hours): Temp Pulse Resp BP Pulse Ox 97.5 F L 78 20 123/74 99 11/13/16 05:25 11/13/16 05:25 11/13/16 05:25 11/13/16 05:25 11/13/16 05:25 Intake and Output: 11/13/16 11/13/16 06:59 18:59 Intake Total 240 Balance 240 - Medications Medications: Current Medications Acetaminophen (Tylenol 325mg Tab) 650 mg PO Q6 PRN PRN Reason: Pain, Mild (1-3) Clonidine HCl (Catapres) 0.1 mg PO Q8 [facility] Last Admin: 11/13/16 05:29 Dose: 0.1 mg Enoxaparin Sodium (Lovenox) 49.895 mg SC Q12H [facility] Last Admin: 11/13/16 05:29 Dose: 49.895 mg Ferric Sodium Gluconate Complex (Ferrlecit) 125 mg IVPB DAILY [facility] Stop: 11/17/16 10:01 Last Admin: 11/12/16 10:10 Dose: 125 mg Sodium Chloride (Sodium Chloride 0.9%) 1,000 mls @ 75 mls/hr IV .[id number] [facility] Last Admin: 11/13/16 03:04 Dose: Not Given Metoclopramide HCl (Reglan) 10 mg IVP Q6 PRN PRN Reason: Nausea/Vomiting Last Admin: 11/12/16 10:09 Dose: 10 mg Oxycodone/Acetaminophen (Percocet 5/325 Mg Tab) 1 tab PO Q6H PRN PRN Reason: Pain, moderate (4-7) Stop: 11/15/16 13:28 Pantoprazole Sodium (Protonix Ec Tab) 40 mg PO DAILY [facility] Last Admin: 11/12/16 10:10 Dose: 40 mg Paroxetine HCl (Paxil) 10 mg PO DAILY [facility] Last Admin: 11/12/16 10:53 Dose: Not Given Zolpidem Tartrate (Ambien) 5 mg PO HS PRN PRN Reason: Insomnia Last Admin: 11/12/16 21:22 Dose: 5 mg - Labs Labs: 11/13/16 06:33 11/13/16 06:33 PT 16.5 SECONDS (9.7-12.2) H 11/11/16 06:14 INR 1.5 11/11/16 06:14 APTT 32 SECONDS (21-34) 11/11/16 06:14 - Constitutional Appears: No Acute Distress - Head Exam Head Exam: ATRAUMATIC, NORMAL INSPECTION, NORMOCEPHALIC - Eye Exam Eye Exam: EOMI, Normal appearance, PERRL Pupil Exam: NORMAL ACCOMODATION, PERRL - Respiratory Exam Respiratory Exam: Clear to Ausculation Bilateral, NORMAL BREATHING PATTERN - Cardiovascular Exam Cardiovascular Exam: REGULAR RHYTHM, +S1, +S2. absent: Murmur - GI/Abdominal Exam GI & Abdominal Exam: Soft, Normal Bowel Sounds. absent: Tenderness Assessment and Plan (1) Anemia Status: Acute (2) GI bleeding Status: Acute (3) Gastrointestinal hemorrhage Status: Acute (4) Uterine cancer Status: Acute
--- NOTE | 2016-11-13 07:30 | CP.PCM.PN ---
Subjective - Date & Time of Evaluation Date of Evaluation: 11/13/16 Time of Evaluation: 20:30 - Subjective Subjective: Pt with Gi bleed and advanced uterus cancer, pt is on medical and supportive managment, no intervention /procedure is recomended, on chemo, pt has DVT on b/ l LE, IVC filter has been pplaced, pt will be monitored and observed today and possible discharge tomorrow Objective - Vital Signs/Intake and Output Vital Signs (last 24 hours): Temp Pulse Resp BP Pulse Ox 97.5 F L 78 20 123/74 99 11/13/16 05:25 11/13/16 05:25 11/13/16 05:25 11/13/16 05:25 11/13/16 05:25 Intake and Output: 11/13/16 11/13/16 06:59 18:59 Intake Total 240 Balance 240 - Medications Medications: Current Medications Acetaminophen (Tylenol 325mg Tab) 650 mg PO Q6 PRN PRN Reason: Pain, Mild (1-3) Clonidine HCl (Catapres) 0.1 mg PO Q8 [facility] Last Admin: 11/13/16 05:29 Dose: 0.1 mg Enoxaparin Sodium (Lovenox) 49.895 mg SC Q12H [facility] Last Admin: 11/13/16 05:29 Dose: 49.895 mg Ferric Sodium Gluconate Complex (Ferrlecit) 125 mg IVPB DAILY [facility] Stop: 11/17/16 10:01 Last Admin: 11/12/16 10:10 Dose: 125 mg Sodium Chloride (Sodium Chloride 0.9%) 1,000 mls @ 75 mls/hr IV .[id number] [facility] Last Admin: 11/13/16 03:04 Dose: Not Given Metoclopramide HCl (Reglan) 10 mg IVP Q6 PRN PRN Reason: Nausea/Vomiting Last Admin: 11/12/16 10:09 Dose: 10 mg Oxycodone/Acetaminophen (Percocet 5/325 Mg Tab) 1 tab PO Q6H PRN PRN Reason: Pain, moderate (4-7) Stop: 11/15/16 13:28 Pantoprazole Sodium (Protonix Ec Tab) 40 mg PO DAILY [facility] Last Admin: 11/12/16 10:10 Dose: 40 mg Paroxetine HCl (Paxil) 10 mg PO DAILY [facility] Last Admin: 11/12/16 10:53 Dose: Not Given Zolpidem Tartrate (Ambien) 5 mg PO HS PRN PRN Reason: Insomnia Last Admin: 11/12/16 21:22 Dose: 5 mg - Labs Labs: 11/13/16 06:33 11/13/16 06:33 PT 16.5 SECONDS (9.7-12.2) H 11/11/16 06:14 INR 1.5 11/11/16 06:14 APTT 32 SECONDS (21-34) 11/11/16 06:14 - Constitutional Appears: No Acute Distress - Head Exam Head Exam: ATRAUMATIC, NORMAL INSPECTION, NORMOCEPHALIC - Eye Exam Eye Exam: EOMI, Normal appearance, PERRL Pupil Exam: NORMAL ACCOMODATION, PERRL - Respiratory Exam Respiratory Exam: Clear to Ausculation Bilateral, NORMAL BREATHING PATTERN - Cardiovascular Exam Cardiovascular Exam: REGULAR RHYTHM, +S1, +S2. absent: Murmur - GI/Abdominal Exam GI & Abdominal Exam: Soft, Normal Bowel Sounds. absent: Tenderness - Rectal Exam Rectal Exam: Deferred Assessment and Plan (1) Anemia Status: Acute (2) GI bleeding Status: Acute (3) Gastrointestinal hemorrhage Status: Acute (4) Uterine cancer Status: Acute
[2016-11-13 08:24] LABS: BANDS 1 % (0-2); LYMPHOCYTE 4 % (20-40); MONOCYTE 8 % (0-10); NEUTROPHIL 87 % (50-75); TOTAL CELLS COUNTED 100
[2016-11-13 08:25] LABS: ANISOCYTOSIS MODERATE; HYPOCHROMIC SLIGHT; MICROCYTOSIS SLIGHT; PLATELET ESTIMATE NORMAL (NORMAL); POIKILOCYTOSIS SLIGHT; POLYCHROMIC SLIGHT
[2016-11-13 08:26] LABS: OVALOCYTES SLIGHT; TEARDROP CELLS SLIGHT
--- NOTE | 2016-11-13 08:34 | CP.PCM.PN ---
Subjective - Date & Time of Evaluation Date of Evaluation: 11/13/16 Time of Evaluation: 06:05 - Subjective Subjective: Vascular Surgery Dr. Vargas Pt S&E @bedside. NAEO. IVC filter placed yesterday. pt tolerated the procedure well w/ no complications. denies F/C, CP, SOB. tolerating diet. Objective - Vital Signs/Intake and Output Vital Signs (last 24 hours): Temp Pulse Resp BP Pulse Ox 97.6 F 83 20 122/66 100 11/13/16 07:30 11/13/16 07:30 11/13/16 07:30 11/13/16 07:30 11/13/16 07:30 Intake and Output: 11/13/16 11/13/16 06:59 18:59 Intake Total 240 Balance 240 - Medications Medications: Current Medications Acetaminophen (Tylenol 325mg Tab) 650 mg PO Q6 PRN PRN Reason: Pain, Mild (1-3) Clonidine HCl (Catapres) 0.1 mg PO Q8 [facility] Last Admin: 11/13/16 05:29 Dose: 0.1 mg Enoxaparin Sodium (Lovenox) 49.895 mg SC Q12H [facility] Last Admin: 11/13/16 05:29 Dose: 49.895 mg Ferric Sodium Gluconate Complex (Ferrlecit) 125 mg IVPB DAILY [facility] Stop: 11/17/16 10:01 Last Admin: 11/12/16 10:10 Dose: 125 mg Sodium Chloride (Sodium Chloride 0.9%) 1,000 mls @ 75 mls/hr IV .[id number] [facility] Last Admin: 11/13/16 03:04 Dose: Not Given Metoclopramide HCl (Reglan) 10 mg IVP Q6 PRN PRN Reason: Nausea/Vomiting Last Admin: 11/12/16 10:09 Dose: 10 mg Oxycodone/Acetaminophen (Percocet 5/325 Mg Tab) 1 tab PO Q6H PRN PRN Reason: Pain, moderate (4-7) Stop: 11/15/16 13:28 Pantoprazole Sodium (Protonix Ec Tab) 40 mg PO DAILY [facility] Last Admin: 11/12/16 10:10 Dose: 40 mg Paroxetine HCl (Paxil) 10 mg PO DAILY [facility] Last Admin: 11/12/16 10:53 Dose: Not Given Zolpidem Tartrate (Ambien) 5 mg PO HS PRN PRN Reason: Insomnia Last Admin: 11/12/16 21:22 Dose: 5 mg - Labs Labs: 11/13/16 06:33 11/13/16 06:33 PT 16.5 SECONDS (9.7-12.2) H 11/11/16 06:14 INR 1.5 11/11/16 06:14 APTT 32 SECONDS (21-34) 11/11/16 06:14 - Constitutional Appears: Non-toxic, No Acute Distress, Chronically Ill - Head Exam Head Exam: NORMAL INSPECTION - Eye Exam Eye Exam: Normal appearance - Respiratory Exam Respiratory Exam: NORMAL BREATHING PATTERN. absent: Accessory Muscle Use, Respiratory Distress - Cardiovascular Exam Cardiovascular Exam: absent: Bradycardia, Tachycardia - GI/Abdominal Exam GI & Abdominal Exam: Soft. absent: Distended, Tenderness - Exam Additional comments: dressing c/d/i no ecchymosis or swelling - Extremities Exam Extremities Exam: Normal Inspection - Neurological Exam Neurological Exam: Alert, Awake, Oriented x3 - Psychiatric Exam Psychiatric exam: Normal Affect, Normal Mood - Skin Skin Exam: Dry, Intact, Normal Color, Warm Assessment and Plan - Assessment and Plan (Free Text) Assessment: 61 y/o F POD#1 s/p IVC filter placement - pain management - leave groin dressing in place (to be removed by surgery team on Tuesday) - monitor for bruising/swelling - monitor vitals - further recs per Dr. Vargas Pt discussed w/ Dr. Sam Fry PGY2
[2016-11-13] MEDS: Ferric Sodium Gluconat Complex 62.5 mg/5 ml Vial IVPB SCH (10:47)
[2016-11-13] MEDS: Pantoprazole 40 mg EC Tab PO SCH (10:47)
[2016-11-13 16:32] VITALS: BP 135/87; PULSE 84; TEMP 98.2; O2SAT 99
--- NOTE | 2016-11-13 16:38 | RAD ---
PROCEDURE: Intraoperative Fluoroscopy. HISTORY: DVT FINDINGS: Fluoroscopic assistance was provided for IVC filter placement. Please
--- NOTE | 2016-11-13 16:50 | CP.PCM.PN ---
Subjective - Date & Time of Evaluation Date of Evaluation: 11/13/16 Time of Evaluation: 16:50 - Subjective Subjective: Pt seen and examined today denies any chest pain, sob, palpitations, dizziness, abdominal pain , c/o left lower extremity pain s/p IVC filter yesterday No overnigh t events reported by RN Objective - Vital Signs/Intake and Output Vital Signs (last 24 hours): Temp Pulse Resp BP Pulse Ox 98.2 F 84 20 135/87 99 11/13/16 15:30 11/13/16 15:30 11/13/16 15:30 11/13/16 15:30 11/13/16 15:30 Intake and Output: 11/13/16 11/13/16 06:59 18:59 Intake Total 240 500 Balance 240 500 - Medications Medications: Current Medications Acetaminophen (Tylenol 325mg Tab) 650 mg PO Q6 PRN PRN Reason: Pain, Mild (1-3) Last Admin: 11/13/16 14:24 Dose: 650 mg Clonidine HCl (Catapres) 0.1 mg PO Q8 [facility] Last Admin: 11/13/16 14:24 Dose: 0.1 mg Enoxaparin Sodium (Lovenox) 49.895 mg SC Q12H [facility] Last Admin: 11/13/16 05:29 Dose: 49.895 mg Ferric Sodium Gluconate Complex (Ferrlecit) 125 mg IVPB DAILY [facility] Stop: 11/17/16 10:01 Last Admin: 11/13/16 10:47 Dose: 125 mg Heparin Sodium (Porcine) (Heparin Lock Flush) 300 units IVF ONCE ONE Stop: 11/13/16 16:50 Sodium Chloride (Sodium Chloride 0.9%) 1,000 mls @ 75 mls/hr IV .[id number] [facility] Last Admin: 11/13/16 03:04 Dose: Not Given Metoclopramide HCl (Reglan) 10 mg IVP Q6 PRN PRN Reason: Nausea/Vomiting Last Admin: 11/12/16 10:09 Dose: 10 mg Oxycodone/Acetaminophen (Percocet 5/325 Mg Tab) 1 tab PO Q6H PRN PRN Reason: Pain, moderate (4-7) Stop: 11/15/16 13:28 Pantoprazole Sodium (Protonix Ec Tab) 40 mg PO DAILY [facility] Last Admin: 11/13/16 10:47 Dose: 40 mg Paroxetine HCl (Paxil) 10 mg PO DAILY [facility] Last Admin: 11/13/16 10:49 Dose: Not Given Zolpidem Tartrate (Ambien) 5 mg PO HS PRN PRN Reason: Insomnia Last Admin: 11/12/16 21:22 Dose: 5 mg - Labs Labs: 11/13/16 06:33 11/13/16 06:33 PT 16.5 SECONDS (9.7-12.2) H 11/11/16 06:14 INR 1.5 11/11/16 06:14 APTT 32 SECONDS (21-34) 11/11/16 06:14 - Constitutional Appears: Well, No Acute Distress - Respiratory Exam Respiratory Exam: Clear to Ausculation Bilateral, NORMAL BREATHING PATTERN - Cardiovascular Exam Cardiovascular Exam: REGULAR RHYTHM, +S1, +S2 - GI/Abdominal Exam GI & Abdominal Exam: Soft, Normal Bowel Sounds - Extremities Exam Extremities Exam: Calf Tenderness, Full ROM, Pedal Edema - Neurological Exam Neurological Exam: Alert, Awake, Oriented x3 Assessment and Plan - Assessment and Plan (Free Text) Assessment: A/P 61F with PMH of uterine cancer with mets to liver and colon currently undergoing chemo admitted for symptomatic anemia, / hematochezia BL LE duplex US: multiple DVT's BL s/p IVF filter yesterday hgb improved after PRBC transfusion stable - 8.3 GI consulted fro hematochezia , and pt refused further work up d/W Dr. Francoise quinn for discharge home today from surgery stand point D/W Dr. Quan stable for discharge home today and f/u nhht PMD and onco / hem MD in 1 week discharge plan discussed with patient and family at bedside, who understands and agrees with plan Pt instructed to return sto ED if symptoms returns or any other concerning symptoms anti-coagulants contra-indicated with anemia and possibility of GI bleed
--- NOTE | 2016-11-15 15:35 | CARD ---
APPROVED REPORT EKG Measurement Heart [id number] 114P49 [id number] <Conclusion> Sinus tachycardia with frequent premature ventricular complexes Possible Left atrial enlargement Cannot rule out Anterior infarct, age undetermined Abnormal ECG
--- NOTE | 2016-11-16 14:41 | CP.PCM.DIS ---
Provider - Provider Date of Admission: 11/08/16 16:23 Attending physician: Ben Quan MD Time Spent in preparation of Discharge (in minutes): 24 Diagnosis - Discharge Diagnosis (1) Anemia Status: Acute (2) GI bleeding Status: Acute (3) Gastrointestinal hemorrhage Status: Acute (4) Uterine cancer Status: Acute Hospital Course - Lab Results Lab Results: Most Recent Lab Values WBC 22.5 K/uL (4.8-10.8) H D 11/13/16 06:33 RBC 2.93 Mil/uL (3.80-5.20) L 11/13/16 06:33 Hgb 8.3 g/dL (11.0-16.0) L 11/13/16 06:33 Hct 25.8 % (34.0-47.0) L 11/13/16 06:33 MCV 88.2 fL (81.0-99.0) 11/13/16 06:33 MCH 28.3 pg (27.0-31.0) 11/13/16 06:33 MCHC 32.1 g/dL (33.0-37.0) L 11/13/16 06:33 RDW 21.4 % (11.5-14.5) H 11/13/16 06:33 Plt Count 167 K/uL (130-400) 11/13/16 06:33 MPV 9.1 fL (7.2-11.7) 11/13/16 06:33 Neut % (Auto) 86.6 % (50.0-75.0) H 11/13/16 06:33 Lymph % (Auto) 3.6 % (20.0-40.0) L 11/13/16 06:33 [place] % (Auto) 9.7 % (0.0-10.0) 11/13/16 06:33 Eos % (Auto) 0.0 % (0.0-4.0) 11/13/16 06:33 Baso % (Auto) 0.1 % (0.0-2.0) 11/13/16 06:33 Neut # 19.5 K/uL (1.8-7.0) H 11/13/16 06:33 Lymph # 0.8 K/uL (1.0-4.3) L 11/13/16 06:33 [place] # 2.2 K/uL (0.0-0.8) H 11/13/16 06:33 Eos # 0.0 K/uL (0.0-0.7) 11/13/16 06:33 Baso # 0.0 K/uL (0.0-0.2) 11/13/16 06:33 Neutrophils % (Manual) 87 % (50-75) H 11/13/16 06:33 Band Neutrophils % 1 % (0-2) 11/13/16 06:33 Lymphocytes % (Manual) 4 % (20-40) L 11/13/16 06:33 Monocytes % (Manual) 8 % (0-10) 11/13/16 06:33 Nucleated RBC % 1 % (0-0) H 11/08/16 13:40 Platelet Estimate Normal (NORMAL) 11/13/16 06:33 Polychromasia Slight 11/13/16 06:33 Hypochromasia (manual) Slight 11/13/16 06:33 Poikilocytosis (manual Slight 11/13/16 06:33 Anisocytosis (manual) Moderate 11/13/16 06:33 Microcytosis (manual) Slight 11/13/16 06:33 Macrocytosis (manual) Slight 11/13/16 06:33 Tear Drop Cells Slight 11/13/16 06:33 Ovalocytes Slight 11/13/16 06:33 PT 16.5 SECONDS (9.7-12.2) H 11/11/16 06:14 INR 1.5 11/11/16 06:14 APTT 32 SECONDS (21-34) 11/11/16 06:14 Sodium 132 mmol/L (132-148) 11/13/16 06:33 Potassium 4.0 mmol/L (3.6-5.2) 11/13/16 06:33 Chloride 99 mmol/L (98-107) 11/13/16 06:33 Carbon Dioxide 24 mmol/L (22-30) 11/13/16 06:33 Anion Gap 13 (10-20) 11/13/16 06:33 BUN 15 mg/dL (7-17) 11/13/16 06:33 Creatinine 0.6 MG/DL (0.7-1.2) L 11/13/16 06:33 Est GFR ( Amer) > 60 11/13/16 06:33 Est GFR (Non-Af Amer) > 60 11/13/16 06:33 Random Glucose 123 mg/dL (65-105) H 11/13/16 06:33 Calcium 7.9 mg/dl (8.6-10.4) L 11/13/16 06:33 Total Bilirubin 0.6 mg/dL (0.2-1.3) 11/13/16 06:33 AST 51 U/L (14-36) H D 11/13/16 06:33 ALT 33 U/L (9-52) 11/13/16 06:33 Alkaline Phosphatase 631 U/L (38-126) H 11/13/16 06:33 Total Protein 5.2 g/dL (6.3-8.3) L 11/13/16 06:33 Albumin 2.5 g/dL (3.5-5.0) L 11/13/16 06:33 Globulin 2.8 gm/dL (2.2-3.9) 11/13/16 06:33 Albumin/Globulin Ratio 0.9 (1.0-2.1) L 11/13/16 06:33 Lipase 17 U/L (23-300) L 11/08/16 13:40 Urine Color Yellow (YELLOW) 11/08/16 14:37 Urine Clarity Clear (Clear) 11/08/16 14:37 Urine pH 7.0 (5.0-8.0) 11/08/16 14:37 Ur Specific [place] 1.016 (1.003-1.030) 11/08/16 14:37 Urine Protein 1+ mg/dL (NEGATIVE) H 11/08/16 14:37 Urine Glucose (UA) Normal mg/dL (Normal) 11/08/16 14:37 Urine Ketones Trace mg/dL (NEGATIVE) 11/08/16 14:37 Urine Blood Negative (NEGATIVE) 11/08/16 14:37 Urine Nitrate Negative (NEGATIVE) 11/08/16 14:37 Urine Bilirubin Negative (NEGATIVE) 11/08/16 14:37 Urine Urobilinogen Normal mg/dL (0.2-1.0) 11/08/16 14:37 Ur Leukocyte Esterase Neg Janie/uL (Negative) 11/08/16 14:37 Urine WBC (Auto) 2 /hpf (0-5) 11/08/16 14:37 Urine RBC (Auto) < 1 /hpf (0-3) 11/08/16 14:37 Ur Squamous Epith Cells 1 /hpf (0-5) 11/08/16 14:37 Urine Bacteria Rare (<OCC) 11/08/16 14:37 Stool Occult Blood Positive (NEGATIVE) H 11/08/16 14:54 Blood Type O NEGATIVE 11/08/16 16:33 Antibody Screen Negative 11/08/16 16:33 - Hospital Course Hospital Course: A/P 61F with PMH of uterine cancer with mets to liver and colon currently undergoing chemo admitted for symptomatic anemia, / hematochezia BL LE duplex US: multiple DVT's BL s/p IVF filter yesterday hgb improved after PRBC transfusion stable - 8.3 GI consulted fro hematochezia , and pt refused further work up d/W Dr. Owusu stable for discharge home today from surgery stand point stable for discharge home today and f/u wiht PMD and onco /hem MD in 1 week discharge plan discussed with patient and family at bedside, who understands and agrees with plan Pt instructed to return sto ED if symptoms returns or any other concerning symptoms anti-coagulants contra-indicated with anemia and possibility of GI bleed Discharge Exam - Head Exam Head Exam: ATRAUMATIC, NORMAL INSPECTION, NORMOCEPHALIC - Eye Exam Eye Exam: EOMI, Normal appearance, PERRL Pupil Exam: NORMAL ACCOMODATION, PERRL - Respiratory Exam Respiratory Exam: Clear to PA & Lateral - Cardiovascular Exam Cardiovascular Exam: REGULAR RHYTHM, +S1, +S2 - GI/Abdominal Exam GI & Abdominal Exam: Normal Bowel Sounds Discharge Plan - Discharge Medications Prescriptions: Ferrous Sulfate 325 mg PO BID #60 tablet Pantoprazole [Protonix] 40 mg PO DAILY #30 ect - Follow Up Plan Condition: FAIR Disposition: HOME/ ROUTINE Instructions: Iron Supplements (By mouth), Pantoprazole (By mouth), Gastrointestinal Bleeding (DC), Hyponatremia (DC), Deep Venous Thrombosis (DC), Inferior Vena Cava Filter Placement (DC), Anemia (DC) Additional Instructions: f/u with Dr. Wild mendez office in 1 week f/u with Onco/Hematlogy MD in [place] Continue medication as per Med. Rec.
== END 2016-11-13 19:30 | disposition home or self-care (01) | DRG 357 ==
LOC: C.ER 11:17 → C.6T 16:23
PROVIDERS: ADMIT Internal Medicine; ATTEND Internal Medicine
PROC: 30233N1 Transfusion of Nonautologous Red Blood Cells into Peripheral Vein, Percutaneous Approach (ICD-10-PCS; principal; 2016-11-09)
PROC: 06H03DZ Insertion of Intraluminal Device into Inferior Vena Cava, Percutaneous Approach (ICD-10-PCS; 2016-11-12)
DX: K62.5 Hemorrhage of anus and rectum (principal); C78.7 Secondary malignant neoplasm of liver and intrahepatic bile duct; C55 Malignant neoplasm of uterus, part unspecified; I82.409 Acute embolism and thrombosis of unspecified deep veins of unspecified lower extremity; C78.80 Secondary malignant neoplasm of unspecified digestive organ; C78.6 Secondary malignant neoplasm of retroperitoneum and peritoneum; E87.1 Hypo-osmolality and hyponatremia; I10 Essential (primary) hypertension; D64.9 Anemia, unspecified; C54.1 Malignant neoplasm of endometrium; J45.909 Unspecified asthma, uncomplicated; Z90.710 Acquired absence of both cervix and uterus; K21.9 Gastro-esophageal reflux disease without esophagitis

== ENCOUNTER 2016-11-14 14:03 | Emergency (ER) | payer MEDICARE ==
[2016-11-14 14:09] VITALS: BMI 18.3
--- NOTE | 2016-11-14 14:10 | C.PDOC ---
History Of Present Illness Patient is a 61 y/o female, whose PMHx includes uterine malignancy (last chemotherapy was last month) that presents to the ED for evaluation of chest pain that started at 7:00 this morning. Pt states pain is non-radiating, non- excertional, and is sub-sternal. Patient states her pain was constant until she was given Nitro in the ambulance, and was resolved. However, patient states that her chest pain has returned. Patient had DVT, and had IVF filter placed. Pt was taken off of anti-coagulants recently due to GI bleed. Denies having this type of pain before. Otherwise, denies any shortness of breath, cough, nausea, vomiting, fever, or any other associated symptoms at this time. Time Seen by Provider: 11/14/16 14:09 Chief Complaint (Nursing): Chest Pain History Per: Patient History/Exam Limitations: no limitations Onset/Duration Of Symptoms: Hrs Current Symptoms Are (Timing): Still Present Quality: "Pain" Associated Symptoms: denies: Nausea, Dyspnea, Diaphoresis, Syncope Modifying Factors: None Exacerbating Factors: None Alleviating Factors: None Nitro Therapy Administered: 1 Recent travel outside of the [place]: No Additional History Per: Patient Past Medical History Reviewed: Historical Data, Nursing Documentation, Vital Signs Vital Signs: Last Vital Signs Temp 97.9 F 11/14/16 20:35 Pulse 74 11/15/16 12:02 Resp 33 H 11/15/16 12:02 BP 181/28 H 11/15/16 12:02 Pulse Ox 98 11/15/16 13:34 - Medical History PMH: Anxiety, Asthma, Depression, HTN, Malignancy (uterine Ca) Denies: Chronic Kidney Disease Surgical History: Tonsillectomy - [facility] Procedures CERVICAL BIOPSY NEC (07/23/14) D & C NEC (07/23/14) HYSTEROSCOPY (07/23/14) TRANSFUSE NONAUT RED BLOOD CELLS IN PERIPH VEIN, PERC (11/08/16) UTERINE LES DESTRUCT NEC (07/23/14) Family History: States: Unknown Family Hx - Social History Hx Tobacco Use: No Hx Alcohol Use: No Hx Substance Use: No - Immunization History Hx Tetanus Toxoid Vaccination: Yes Hx Influenza Vaccination: No Hx Pneumococcal Vaccination: No Review Of Systems Except As Marked, All Systems Reviewed And Found Negative. Constitutional: Negative for: Fever, Chills Cardiovascular: Positive for: Chest Pain. Negative for: Palpitations, Light Headedness Respiratory: Negative for: Cough, Shortness of Breath Gastrointestinal: Negative for: Nausea, Vomiting, Abdominal Pain, Diarrhea Skin: Negative for: Rash Neurological: Negative for: Headache, Dizziness Physical Exam - Physical Exam Appears: Non-toxic, No Acute Distress Skin: Normal Color, Warm, Dry Head: Atraumatic, Normacephalic Eye(s): bilateral: Normal Inspection, EOMI Neck: Normal ROM, No Supple Chest: Symmetrical, No Tenderness, Other (port in chest wall) Cardiovascular: Rhythm Regular (tachycardic), No Murmur Respiratory: Normal Breath Sounds, No Accessory Muscle Use, No Rales, No Rhonchi , No Wheezing Gastrointestinal/Abdominal: Soft, No Tenderness Extremity: Normal ROM, No Deformity Neurological/Psych: Oriented x3, Normal Speech, Normal Cognition ED Course And Treatment - Laboratory Results Result Diagrams: 11/15/16 08:42 11/15/16 08:42 O2 Sat by Pulse Oximetry: 98 (on RA) Pulse Ox Interpretation: Normal Progress Note: Blood work, CXR, EKG, angio chest CT ordered and reviewed. Patient was given Dilaudid, and Nitroglycerin. Medical Decision Making Medical Decision Makin disc ECG w Dr Sanches- no code heart at this time [address] Amaya will admit req consult Dr Robin [address] Robin- rec ASA and GI consult before further anticoag 1555 disc w pt- she refused ASA. I advised benefits likely greater than risk at this time and she still refused [address] Roberson rec heparin if no active GI bleed. 1638 Dr Dung hopson pt in the ED- deemed appropriate for tele. pt still refusing rx. [address] results w pt. she is now agreeable to anticoagulation I disc code status with the patient and she does NOT wish to be intubated or have CPR should this be required to save her life. Her code status is thus changed to DNR/DNI. 11/15/16 1330 The patient is in asystole on the monitor. there are no heart tones and no pulses. time of called. the patient's is at bedside. Disposition - Disposition Disposition: HOSPITALIZED Disposition Time: 15:45 Condition: GUARDED - Clinical Impression Clinical Impression: Acute non-ST segment elevation myocardial infarction, Pulmonary emboli - Katalinaibe Statement The provider has reviewed the documentation as recorded by the Dylan Alejo All medical record entries made by the Dylan were at my direction and personally dictated by me. I have reviewed the chart and agree that the record accurately reflects my personal performance of the history, physical exam, medical decision making, and the department course for this patient. I have also personally directed, reviewed, and agree with the discharge instructions and disposition.
[2016-11-14] MEDS ORDERED: HYDROmorphone 1 mg/ml ISec IVP STA (14:21)
[2016-11-14] MEDS ORDERED: HYDROmorphone 1 mg/ml ISec ONE ×2 (14:25→14:57)
[2016-11-14] MEDS ORDERED: Nitroglycerin 2% Ointment Foilpak UD TOP STA (14:27)
[2016-11-14] MEDS ORDERED: Nitroglycerin 2% Ointment Foilpak UD TOP ONE (14:34)
[2016-11-14] MEDS ORDERED: Iodixanol 320 MG/ML 200 ML BOTTLE IV ONE (14:58)
[2016-11-14] MEDS ORDERED: Sodium Chloride 0.9% 1,000 ML IV ONE ×2 (15:13→16:10)
[2016-11-14 15:20] LABS: MEAN CELL VOLUME 88.9 fL (81.0-99.0); MEAN CORPUSCULAR HEMOGLOBIN 27.7 pg (27.0-31.0); MEAN CORPUSCULAR HGB CONC 31.2 g/dL (33.0-37.0); MEAN PLATELET VOLUME 8.5 fL (7.2-11.7); RBC 3.78 Mil/uL (3.80-5.20); RED CELL DISTRIBUTION WIDTH 21.7 % (11.5-14.5); WHITE BLOOD COUNT 27.2 K/uL (4.8-10.8)
[2016-11-14 15:22] LABS: ALB/GLOB RATIO 0.9 (1.0-2.1); ALT/SGPT 54 U/L (9-52); AST/SGOT 98 U/L (14-36); BLOOD UREA NITROGEN 18 mg/dL (7-17); GFR AFRICAN-AMERICAN > 60; GFR NON-AFRICAN AMERICAN > 60
[2016-11-14 15:23] LABS: CALCIUM 8.6 mg/dl (8.6-10.4)
[2016-11-14 15:27] LABS: HEMOGLOBIN 10.5 g/dL (11.0-16.0); PLATELET COUNT 110 K/uL (130-400)
[2016-11-14 15:53] LABS: NEUT % 81.2 % (50.0-75.0)
[2016-11-14 15:54] LABS: BASO % 0.3 % (0.0-2.0); LYMPH % 3.6 % (20.0-40.0); MONO % 14.9 % (0.0-10.0); NEUT # 22.7 K/uL (1.8-7.0); NRBC % 0.2 % (0.0-2.0)
[2016-11-14 15:55] LABS: LYMPH # 3.6 K/uL (1.0-4.3); MONO # 14.9 K/uL (0.0-0.8)
[2016-11-14 15:56] LABS: BASO # 0.1 K/uL (0.0-0.2)
[2016-11-14 15:58] LABS: BANDS 1 % (0-2); LYMPHOCYTE 9 % (20-40); MONOCYTE 12 % (0-10); NEUTROPHIL 78 % (50-75); TOTAL CELLS COUNTED 100
[2016-11-14 15:59] LABS: ANISOCYTOSIS MODERATE; PLATELET ESTIMATE DECREASED (NORMAL)
[2016-11-14 16:00] LABS: POIKILOCYTOSIS SLIGHT
[2016-11-14 16:01] LABS: HYPOCHROMIC SLIGHT; OVALOCYTES SLIGHT; POLYCHROMIC SLIGHT
--- NOTE | 2016-11-14 16:39 | RAD ---
HISTORY: Chest pain COMPARISON: No prior. FINDINGS: LUNGS: Right central venous catheter tip extending to the cavoatrial junction. Mild venous congestion. Patchy increased markings at the left lung base with question trace left pleural effusion. PLEURA: As above. CARDIOVASCULAR: Normal. OSSEOUS STRUCTURES: No significant abnormalities. VISUALIZED UPPER ABDOMEN: Normal. OTHER FINDINGS: None. IMPRESSION: Right central venous catheter tip extending to the cavoatrial junction. Mild venous congestion. Patchy increased markings at the left lung base with question trace left pleural effusion.
--- NOTE | 2016-11-14 16:59 | CT ---
CT chest pulmonary angiogram History: Cancer. Chest pain. Tachycardia. Comparison x-ray dated 11/14/2016 Technique: Multiple contiguous axial images were performed through the chest according to a pulmonary angiogram protocol for evaluation of pulmonary embolism with use of intravenous contrast. Subsequently, sagittal coronal reformatted as well sagittal coronal MIPS reformatted images were obtained. This CT exam was performed using one or more of the following dose reduction techniques: Automated exposure control, adjustment of the mA and/or kV according to patient size, and/or use of iterative reconstruction technique. Findings: Filling defect noted within segmental branches of the right lower lobe pulmonary artery best seen on series 2, image 113 series 601, image 58 consistent with acute pulmonary embolism. Additional filling defects within segmental branches of the right upper lobe pulmonary artery on series 2, image 67 and image 63 also consistent with pulmonary emboli. Filling defects seen within segmental branches of the left lower lobe pulmonary artery seen on series 2, images 100-104 as well as images 120-123 also concerning for pulmonary emboli. Calcification and plaque within the aorta. Small to moderate bilateral pleural effusions. No significant axillary adenopathy. Heterogeneity of the thyroid. No significant pericardial effusion. Diffuse anasarca within the visualized subcutaneous soft tissues. Prominently enlarged liver with multiple ill-defined heterogeneous lesions concerning for diffuse metastatic disease. IVC filter partially visualized. Prominent spleen with splenic ascites. Nodularity and thickening of the bilateral adrenal glands. Heterogeneous pancreas. Mild fullness of the bilateral renal collecting systems. Degenerative changes in the spine. Right lun millimeter ground-glass opacity within the anterior aspect of the right middle lobe. Prominent atelectasis at the right lung base adjacent to the pleural effusion. Left lung: Mild linear nodularity along the lateral aspect of the left upper lobe. Focal nodular consolidation at the level of the lingula measuring 9 millimeters. Prominent consolidative atelectasis at the left lower lobe adjacent to pleural effusion. Trachea thru central airways are patent. Few calcifications noted at the left breast and nipple. Clinical correlation. Correlation with mammogram may be helpful. Heterogeneity of the thyroid. Impression: Bilateral pulmonary emboli as described above. Small to moderate bilateral pleural effusions. 5 millimeter ground-glass opacity within the anterior aspect of the right middle lobe. Prominent atelectasis at the right lung base adjacent to the pleural effusion. Mild linear nodularity along the lateral aspect of the left upper lobe. Focal nodular consolidation at the level of the lingula measuring 9 millimeters. Prominent consolidative atelectasis at the left lower lobe adjacent to pleural effusion. Prominently enlarged liver with multiple ill-defined heterogeneous lesions concerning for diffuse metastatic disease. Additional findings as above. These findings were discussed with Dr. Varghese at 4:50 p.m. on 11/14/2016.
[2016-11-14] MEDS: Heparin25000 units/250ml 1/2NS 25,000 UNITS/250 ML BAG IV PRN (18:11)
[2016-11-14 20:40] VITALS: TEMP 97.9
[2016-11-14 23:48] LABS: CK-MB 87.8 ng/mL (0.0-3.38)
[2016-11-15 01:20] LABS: INR 1.5; PROTHROMBIN TIME 16.6 SECONDS (9.7-12.2)
[2016-11-15] MEDS ORDERED: Metoprolol 1 mg/ml Inj IVP ONE ×2 (03:35→03:49)
[2016-11-15] MEDS ORDERED: Albuterol-Ipratrop 3 mg / 0.5 (3 ml) UD INH STA (04:58)
--- NOTE | 2016-11-15 07:42 | CP.PCM.PN ---
Subjective - Date & Time of Evaluation Date of Evaluation: 11/15/16 Time of Evaluation: 09:11 - Subjective Subjective: PGY 2 Medicine Note- Dr. Amaya's service Pt seen and examined in no apparent distress. At time of initial evaluation, patient not responding to questions asked. Per nursing, patient was minimally responsive from beginning of shift around 7am. On evaluation, patient's pulse oximetry reading reported in the 60's however when attempting to locate a different source to obtain a correct reading, patient's extremities were too cold for a reading to be obtained and thus oximetry probe remained on forehead. House Doctor Gui was paged around 1:20 regarding patient's worsening respiratory condition. At the time, patient's breathing was reported as agonal. By the time, automatic typewriter inspector arrived by the patient's bedside; it was noted that patient had already passed. Time of pronouncement was at 13:[address] Varghese. was present at the time of pronouncement. Objective - Vital Signs/Intake and Output Vital Signs (last 24 hours): Temp Pulse Resp BP Pulse Ox 97.9 F 97 H 39 H 118/43 L 60 L 11/14/16 20:35 11/15/16 07:30 11/15/16 07:30 11/15/16 07:30 11/15/16 07:30 - Medications Medications: Current Medications Aspirin (Ecotrin) 81 mg PO DAILY [facility] Clonazepam (Klonopin) 0.5 mg PO Q12 PRN PRN Reason: Anxiety Last Admin: 11/14/16 23:05 Dose: 0.5 mg Ferrous Sulfate (Feosol) 325 mg PO BID [facility] Home Med (Magnesium Oxide [Magnesium]) 1,000 mg PO DAILY [facility] Heparin Sodium/Sodium Chloride (Heparin 84856 Units/250ml 1/2 Normal Saline) 25 ,000 units in 250 mls @ 8.981 mls/hr IV .Q24H PRN; Protocol; 18 UNITS/KG/HR PRN Reason: PROTOCOL Last Admin: 11/14/16 18:11 Dose: 18 units/kg/hr, 8.981 mls/hr Pantoprazole Sodium (Protonix Ec Tab) 40 mg PO DAILY [facility] Paroxetine HCl (Paxil) 10 mg PO DAILY [facility] - Labs Labs: PT 16.6 SECONDS (9.7-12.2) H 11/15/16 01:00 INR 1.5 11/15/16 01:00 APTT 86 SECONDS (21-34) H D 11/15/16 01:00 - Constitutional Appears: Chronically Ill - Head Exam Head Exam: ATRAUMATIC, NORMAL INSPECTION - Eye Exam Eye Exam: EOMI Pupil Exam: NORMAL ACCOMODATION, PERRL Additional comments: Initially responsive at time of initial evaluation - ENT Exam ENT Exam: Mucous Membranes Moist, Normal Exam - Neck Exam Neck Exam: Full ROM - Respiratory Exam Respiratory Exam: Clear to Ausculation Bilateral, Respiratory Distress - Cardiovascular Exam Cardiovascular Exam: +S1, +S2 - GI/Abdominal Exam GI & Abdominal Exam: Soft, Normal Bowel Sounds - Extremities Exam Additional comments: cold extremities UE and LE b/l - Back Exam Back Exam: Full ROM - Neurological Exam Neurological Exam: Alert, Awake. absent: Oriented x3 - Skin Skin Exam: Pallor. absent: Warm Assessment and Plan (1) Respiratory failure Assessment & Plan: BIPAP therapy Patient's respirations continued to decline. Patient DNR/DNI Patient passed at 13:30 Status: Acute (2) NSTEMI (non-ST elevated myocardial infarction) Assessment & Plan: Grinder Machine Setter, Dr. Robin on the case Patient initially refused anticoagulation but later consented. On Heparin drip ROMIs positive and uptrending Status: Acute (3) Pulmonary emboli Assessment & Plan: On Heparin Drip Status: Acute (4) Uterine cancer Assessment & Plan: History of uterine cancer with mets Last chemotherapy treatment October 2016 Pain control as needed Status: Acute (5) Anemia Assessment & Plan: Ferrous Sulfate 325 mg PO BID Patient previously refused further GI workup. At that time, she also refused anticoagulant therapy. Status: Acute (6) Prophylactic measure Assessment & Plan: PPI Heparin Drip Status: Acute - Assessment and Plan (Free Text) Assessment: Patient code status DNR/DNI. Patient with agonal breathing noted with continued deterioration. Time of called at 13:30.
--- NOTE | 2016-11-15 08:25 | CP.PCM.CON ---
History of Present Illness - History of Present Illness History of Present Illness: patient seen/examined. full consult to follow. Metastatic carcinoma, presents with chst pain, dyspnea. found to have NSTEMI, pulmonary emboli. Patietnhad a recent GI bleed, was refusing antiplatelet and anticoagulant therapy prior to risk of bleeding. The patient previously refused endoscopy and further GI workup. Currently on NRB. DNR/DNI. High risk for invasive therapy due to multiple comorbidites, risk of bleeding with antiplatelet and anticoagulant therapy. Conservative therapy is recommended. Past Patient History - Past Medical History & Family History Past Medical History?: Yes - Past Social History Smoking Status: Never Smoked - CARDIAC Hx Hypertension: Yes - PULMONARY Hx Asthma: Yes - NEUROLOGICAL Hx Neurological Disorder: No - HEENT Hx HEENT Problems: No - RENAL Hx Chronic Kidney Disease: No - ENDOCRINE/METABOLIC Hx Endocrine Disorders: No - HEMATOLOGICAL/ONCOLOGICAL Hx Blood Disorders: Yes Hx Anemia: Yes Hx Cancer: Yes (ovarian surgery) Hx Chemotherapy: Yes Other/Comment: GI bleed - INTEGUMENTARY Hx Dermatological Problems: No - MUSCULOSKELETAL/RHEUMATOLOGICAL Hx Musculoskeletal Disorders: No Hx Falls: No - GASTROINTESTINAL Hx Gastrointestinal Disorders: Yes Hx Gastroesophageal Reflux: Yes Other/Comment: GI bleed - GENITOURINARY/GYNECOLOGICAL Hx Genitourinary Disorders: Yes Hx Ovarian Cancer: Yes (surgery) Hx Uterine Cancer: Yes - PSYCHIATRIC Hx Anxiety: Yes Hx Depression: Yes Hx Substance Use: No - SURGICAL HISTORY Hx Tonsillectomy: Yes - ANESTHESIA Hx Anesthesia: Yes Hx Anesthesia Reactions: No Hx Malignant Hyperthermia: No Meds Allergies/Adverse Reactions: Allergies Allergy/AdvReac Type Severity Reaction Status Date / Time shellfish derived Allergy Verified 11/14/16 14:08 - Medications Medications: Current Medications Aspirin (Ecotrin) 81 mg PO DAILY [facility] Clonazepam (Klonopin) 0.5 mg PO Q12 PRN PRN Reason: Anxiety Last Admin: 11/14/16 23:05 Dose: 0.5 mg Ferrous Sulfate (Feosol) 325 mg PO BID [facility] Home Med (Magnesium Oxide [Magnesium]) 1,000 mg PO DAILY [facility] Heparin Sodium/Sodium Chloride (Heparin 03407 Units/250ml 1/2 Normal Saline) 25 ,000 units in 250 mls @ 8.981 mls/hr IV .Q24H PRN; Protocol; 18 UNITS/KG/HR PRN Reason: PROTOCOL Last Admin: 11/14/16 18:11 Dose: 18 units/kg/hr, 8.981 mls/hr Pantoprazole Sodium (Protonix Ec Tab) 40 mg PO DAILY [facility] Paroxetine HCl (Paxil) 10 mg PO DAILY [facility] Results - Vital Signs Recent Vital Signs: Last Vital Signs Temp 97.9 F 11/14/16 20:35 Pulse 97 H 11/15/16 07:30 Resp 39 H 11/15/16 07:30 BP 118/43 L 11/15/16 07:30 Pulse Ox 60 L 11/15/16 07:30 - Labs Result Diagrams: 11/14/16 15:07 11/14/16 15:07 Labs: Laboratory Results - last 24 hr 11/14/16 11/14/16 11/15/16 17:31 23:15 01:00 PT 16.6 H INR 1.5 APTT 34 86 H D Total Creatine Kinase 382 H CK-MB (Mass) 87.8 H Troponin I, Quant 6.5900 H*
--- NOTE | 2016-11-15 08:25 | CP.PCM.CON ---
History of Present Illness - History of Present Illness History of Present Illness: I was asked to evaluate patient by Dr. Amaya. Patient is a 61 year old female with a PMH meatastatic cardinoma, GI bleed who presents with dyspnea. The patient is unable to provide history as she is currently on BiPAP. The patient had a recent GI bleed requiring blood transfusion however she refused EGD. The patient was foudn to have a NSTEMI this admission and was evalated by ICU. The patient refused anticaogulation or ASA upon discussion with Dr. Razo. Patient also had CT angiogram displaying pulmonary emboli. The patient is seen in ER. She appears critically ill. Review of Systems - Review of Systems Systems not reviewed;Unavailable: Unstable Vital Signs, Respiratory Distress Past Patient History - Past Medical History & Family History Past Medical History?: Yes - Past Social History Smoking Status: Never Smoked - CARDIAC Hx Hypertension: Yes - PULMONARY Hx Asthma: Yes - NEUROLOGICAL Hx Neurological Disorder: No - HEENT Hx HEENT Problems: No - RENAL Hx Chronic Kidney Disease: No - ENDOCRINE/METABOLIC Hx Endocrine Disorders: No - HEMATOLOGICAL/ONCOLOGICAL Hx Blood Disorders: Yes Hx Anemia: Yes Hx Cancer: Yes (ovarian surgery) Hx Chemotherapy: Yes Other/Comment: GI bleed - INTEGUMENTARY Hx Dermatological Problems: No - MUSCULOSKELETAL/RHEUMATOLOGICAL Hx Musculoskeletal Disorders: No Hx Falls: No - GASTROINTESTINAL Hx Gastrointestinal Disorders: Yes Hx Gastroesophageal Reflux: Yes Other/Comment: GI bleed - GENITOURINARY/GYNECOLOGICAL Hx Genitourinary Disorders: Yes Hx Ovarian Cancer: Yes (surgery) Hx Uterine Cancer: Yes - PSYCHIATRIC Hx Anxiety: Yes Hx Depression: Yes Hx Substance Use: No - SURGICAL HISTORY Hx Tonsillectomy: Yes - ANESTHESIA Hx Anesthesia: Yes Hx Anesthesia Reactions: No Hx Malignant Hyperthermia: No Meds Allergies/Adverse Reactions: Allergies Allergy/AdvReac Type Severity Reaction Status Date / Time shellfish derived Allergy Verified 11/14/16 14:08 - Medications Medications: Current Medications Aspirin (Ecotrin) 81 mg PO DAILY [facility] Clonazepam (Klonopin) 0.5 mg PO Q12 PRN PRN Reason: Anxiety Last Admin: 11/14/16 23:05 Dose: 0.5 mg Ferrous Sulfate (Feosol) 325 mg PO BID [facility] Home Med (Magnesium Oxide [Magnesium]) 1,000 mg PO DAILY [facility] Heparin Sodium/Sodium Chloride (Heparin 85390 Units/250ml 1/2 Normal Saline) 25 ,000 units in 250 mls @ 8.981 mls/hr IV .Q24H PRN; Protocol; 18 UNITS/KG/HR PRN Reason: PROTOCOL Last Admin: 11/14/16 18:11 Dose: 18 units/kg/hr, 8.981 mls/hr Pantoprazole Sodium (Protonix Ec Tab) 40 mg PO DAILY [facility] Paroxetine HCl (Paxil) 10 mg PO DAILY [facility] Physical Exam - Constitutional Appears: Toxic - Head Exam Head Exam: NORMAL INSPECTION - Eye Exam Eye Exam: Normal appearance - ENT Exam ENT Exam: Mucous Membranes Dry - Neck Exam Neck exam: Negative for: Lymphadenopathy - Respiratory Exam Respiratory Exam: Decreased Breath Sounds, Rales - Cardiovascular Exam Cardiovascular Exam: Tachycardia - GI/Abdominal Exam GI & Abdominal Exam: Hypoactive Bowel Sounds - Rectal Exam Rectal Exam: Deferred - Extremities Exam Extremities exam: Positive for: pedal edema - Back Exam Back exam: NORMAL INSPECTION - Skin Skin Exam: Normal Color Results - Vital Signs Recent Vital Signs: Last Vital Signs Temp 97.9 F 11/14/16 20:35 Pulse 97 H 11/15/16 07:30 Resp 39 H 11/15/16 07:30 BP 118/43 L 11/15/16 07:30 Pulse Ox 60 L 11/15/16 07:30 - Labs Result Diagrams: 11/15/16 08:42 11/15/16 08:42 Labs: Laboratory Results - last 24 hr 11/14/16 11/14/16 11/15/16 17:31 23:15 01:00 PT 16.6 H INR 1.5 APTT 34 86 H D Total Creatine Kinase 382 H CK-MB (Mass) 87.8 H Troponin I, Quant 6.5900 H* - EKG Data EKG Interpreted by: Myself Assessment & Plan (1) Acute non-ST segment elevation myocardial infarction Assessment and Plan: patient refused aspirin therapy. she is critically ill. she is too unstable for invasive measures, and refused medical therapy Status: Acute (2) Anemia Assessment and Plan: contributor to cardiac status Status: Acute (3) GI bleeding Assessment and Plan: refusing antiplatelet therapy Status: Acute (4) Pulmonary emboli Assessment and Plan: now placed on heparin Status: Acute
[2016-11-15 08:48] LABS: RBC 3.56 Mil/uL (3.80-5.20); RED CELL DISTRIBUTION WIDTH 24.3 % (11.5-14.5)
[2016-11-15 08:55] LABS: INR 1.8; PROTHROMBIN TIME 20.6 SECONDS (9.7-12.2)
[2016-11-15] MEDS: Heparin25000 units/250ml 1/2NS 25,000 UNITS/250 ML BAG IV PRN (08:59)
[2016-11-15 09:06] LABS: ALBUMIN 3.1 g/dL (3.5-5.0)
[2016-11-15 09:09] LABS: ALB/GLOB RATIO 0.9 (1.0-2.1); ALT/SGPT 436 U/L (9-52); BLOOD UREA NITROGEN 16 mg/dL (7-17); GFR AFRICAN-AMERICAN > 60; GFR NON-AFRICAN AMERICAN > 60
[2016-11-15 09:10] LABS: BASO # 0.1 K/uL (0.0-0.2); BASO % 0.2 % (0.0-2.0); CALCIUM 8.2 mg/dl (8.6-10.4); LYMPH # 1.4 K/uL (1.0-4.3); MAGNESIUM 1.6 mg/dL (1.6-2.3); MEAN CORPUSCULAR HGB CONC 27.6 g/dL (33.0-37.0); MEAN PLATELET VOLUME 8.6 fL (7.2-11.7); MONO # 3.6 K/uL (0.0-0.8); MONO % 12.8 % (0.0-10.0); NEUT # 23.2 K/uL (1.8-7.0); NRBC % 1.2 % (0.0-2.0); WHITE BLOOD COUNT 28.3 K/uL (4.8-10.8)
[2016-11-15 09:27] LABS: MEAN CELL VOLUME 101.3 fL (81.0-99.0); PLATELET COUNT 59 K/uL (130-400)
[2016-11-15 09:34] LABS: AST/SGOT 771 U/L (14-36)
[2016-11-15 09:55] LABS: BANDS 3 % (0-2); LYMPHOCYTE 6 % (20-40); MONOCYTE 11 % (0-10); NEUTROPHIL 80 % (50-75); NUCLEATED RED BLOOD CELL 1 % (0-0); TOTAL CELLS COUNTED 100
[2016-11-15 09:57] LABS: ANISOCYTOSIS SLIGHT; PLATELET ESTIMATE DECREASED (NORMAL); POIKILOCYTOSIS SLIGHT
[2016-11-15 09:58] LABS: BURR CELLS SLIGHT; HYPOCHROMIC SLIGHT
[2016-11-15 09:59] LABS: GIANT PLATELETS PRESENT; LARGE PLATELETS PRESENT; TEARDROP CELLS SLIGHT
[2016-11-15] MEDS ORDERED: Pantoprazole 40 mg EC Tab PO SCH (10:00)
[2016-11-15] MEDS ORDERED: MAGNESIUM OXIDE 1000 MG PO SCH (10:00)
[2016-11-15 12:03] VITALS: BP 181/28; PULSE 74; RESP 33
[2016-11-15 13:35] VITALS: O2SAT 98
--- NOTE | 2016-11-15 14:01 | CP.PCM.PRO ---
Pronouncement of Note - Clinical Findings Physical Exam: No Response Verbal/Painful Stimuli, Absent Heart & Breath Sounds , No Pupillary Light Reflex, Pupils Fixed & Dilated, Absence of Vital Signs - Pronouncement Time Time of Pronouncement of : 13:30 Additional Comments: Pronouncement of at 13:30 PM on 11/15/[address] Varghese. Covering Hospitalist Dr. Amaya notified. Absence of pulses, respirations, and pupillary response. Unresponsive to painful stimuli. No heart sounds or breath sounds appreciated. Cause of likely respiratory failure secondary to multifactorial presentation of Uterine cancer with mets; NSTEMI and pulmonary embolism. present bedside. - Notifications Pronouncement Notifications: Family Notified, Atending Notified Traffic Administrator Notified: Yes - [place] [id number]
[2016-11-15] MEDS ORDERED: Magnesium Oxide 400 mg Tab UD PO SCH (18:00)
--- NOTE | 2016-11-17 11:14 | CARD ---
APPROVED REPORT EKG Measurement Heart [id number] [id number] <Conclusion> Sinus tachycardia with premature wide complexes Nonspecific ST abnormality Abnormal ECG
--- NOTE | 2016-11-17 11:26 | CARD ---
APPROVED REPORT EKG Measurement Heart [id number] [id number] <Conclusion> Sinus tachycardia with premature atrial complexes Otherwise normal ECG
== END 2016-11-15 13:30 ==
LOC: C.ER 14:03 → UNDOADMIN 16:10 → C.9E 16:10 → UNDODISIN 11-15 13:30 → C.ER 11-15 13:30
DX: I21.4 Non-ST elevation (NSTEMI) myocardial infarction (principal); I26.99 Other pulmonary embolism without acute cor pulmonale; J96.90 Respiratory failure, unspecified, unspecified whether with hypoxia or hypercapnia; C79.9 Secondary malignant neoplasm of unspecified site; I10 Essential (primary) hypertension; D64.9 Anemia, unspecified; Z66 Do not resuscitate; J45.909 Unspecified asthma, uncomplicated; Z85.43 Personal history of malignant neoplasm of ovary; Z85.42 Personal history of malignant neoplasm of other parts of uterus
CPT/HCPCS: 71010; 71275; 80053; 82948; 83735; 84100; 84484; 85025; 85610; 85730; 93005; 94640; 94660; 96361; 96374; 96375; 96376; 99285; G0328; J1170; J1644; J2270; J7040; Q9966